=== PATIENT | male | born 1985 | race Caucasian/White ===

== ENCOUNTER 2021-05-07 06:29 | Outpatient (REF) | payer OTHER, SELFPAY ==
[2021-05-07 07:19] LABS: MANUAL DIFF FLAG NO
[2021-05-07 07:29] LABS: Basophils Absolute Auto 0.1 X10*3/uL (0.0-0.2); Basophils Percent Auto 1.1 % (0-2); Eosinophils Absolute Auto 0.3 X10*3/uL (0.0-0.4); Eosinophils Percent Auto 4.2 % (0-4); Hematocrit 44.2 % (42-52); Imm Gran Abs Auto 0.02 X10*3/uL (0.00-0.03); Imm Gran Pct Auto 0.3 % (0.0-0.4); Lymphocytes Absolute Auto 1.7 X10*3/uL (1.2-4.9); Lymphocytes Percent Auto 26.1 % (20-40); Mean Corpuscular HGB Conc 33.9 g/dl (31.0-36.0); Mean Corpuscular Hemoglobin 30.2 pg (27.0-33.0); Mean Corpuscular Volume 88.9 fL (80-98); Mean Platelet Volume 10.8 fL (9.4-12.4); Monocytes Absolute Auto 0.8 X10*3/uL (0.1-1.2); Monocytes Percent Auto 12.2 % (2-11); Neutrophils Absolute Auto 3.6 X10*3/uL (2.0-8.3); Neutrophils Percent Auto 56.1 % (45-73); Platelet Count 296 X10*3/uL (160-400); Red Blood Count 4.97 X10*6/uL (4.60-5.80); Red Cell Distribution Width 12.2 % (11.0-16.0); White Blood Count 6.4 X10*3/uL (4.8-10.8)
[2021-05-07 07:53] LABS: Alanine Aminotransferase 42 U/L (0-40); Albumin Level 4.6 g/dL (3.5-5.0); Alkaline Phosphatase 60 U/L (39-117); Anion Gap 13 (12-20); Aspartate Amino Transferase 34 U/L (5-37); Bilirubin Total 0.7 mg/dL (0.0-1.0); Blood Urea Nitrogen 13 mg/dL (9-16); Calcium 10.2 mg/dL (8.4-10.2); Carbon Dioxide 26 mmol/L (22-29); Chloride 101 mmol/L (96-108); Cholesterol 233 mg/dL; Estimated Glomerular Filt Rate > 60; Glucose Fasting 117 mg/dL (60-99); HDL Cholesterol 73 mg/dL; LDL Cholesterol Calculated 140 mg/dl; Potassium 4.4 mmol/L (3.3-5.1); Sodium 136 mmol/L (135-145); Total Protein 7.2 g/dL (6.5-8.0); Triglycerides 103 mg/dL
[2021-05-07 08:14] LABS: TSH reflex Free T4 1.82 uIU/mL (0.32-4.0)
[2021-05-07 08:39] LABS: Creatinine Urine 128.78 mg/dL; Microalbum/Creatinine Ratio Ur 6.9 ug/mg cr
== END 2021-05-07 06:30 | disposition home or self-care (01) ==
LOC: HO.LAB 06:29
PROVIDERS: PCP Physician Assistant; Visit Provider Physician Assistant
DX: I10 Essential (primary) hypertension (principal)
CPT/HCPCS: 36415; 80053; 80061; 82043; 84443; 85025

== ENCOUNTER → 2021-06-08 14:51 | Outpatient (REF) | payer OTHER, SELFPAY ==
--- NOTE | ~2021-06-08 | XR_ITS ---
EXAMINATION: XR LUMBOSACRAL SPINE CLINICAL INFORMATION: Low back pain COMPARISON: None TECHNIQUE: Three views of the lumbosacral spine. FINDINGS: Bone alignment is normal. No fracture or dislocation is seen. Disc spaces are normal. There is lower lumbar spine facet arthritis. XR/XR lumbar spine 2-3V IMPRESSION: Lower lumbar spine facet arthritis.
== END ==
LOC: HO.SL 14:51
PROVIDERS: PCP Physician Assistant; Visit Provider Physician Assistant
DX: M54.50 Low back pain, unspecified (principal); R06.81 Apnea, not elsewhere classified
CPT/HCPCS: 72100; 95806

== ENCOUNTER → 2021-06-23 15:25 | Outpatient (BNVA) | payer OTHER, SELFPAY | PROVIDERS: PCP Physician Assistant; Visit Provider Internal Medicine ==

== ENCOUNTER → 2021-10-06 10:56 | Outpatient (BNVA) | payer OTHER, SELFPAY | PROVIDERS: PCP Physician Assistant; Visit Provider Internal Medicine ==

== ENCOUNTER 2021-12-25 08:48 | Outpatient (REF) | payer OTHER, SELFPAY ==
[2021-12-25 09:57] LABS: Estimated Average Glucose 105 mg/dL; Hemoglobin A1c % 5.3 %
[2021-12-25 10:06] LABS: Alanine Aminotransferase 33 U/L (0-40); Albumin Level 4.7 g/dL (3.5-5.0); Alkaline Phosphatase 65 U/L (39-117); Anion Gap 12 (12-20); Aspartate Amino Transferase 23 U/L (5-37); Bilirubin Total 0.6 mg/dL (0.0-1.0); Blood Urea Nitrogen 13 mg/dL (9-16); Calcium 10.2 mg/dL (8.4-10.2); Carbon Dioxide 25 mmol/L (22-29); Chloride 102 mmol/L (96-108); Cholesterol 226 mg/dL; Estimated Glomerular Filt Rate > 60; Glucose Fasting 116 mg/dL (60-99); HDL Cholesterol 68 mg/dL; LDL Cholesterol Calculated 144 mg/dl; Potassium 4.4 mmol/L (3.3-5.1); Sodium 135 mmol/L (135-145); Total Protein 7.7 g/dL (6.5-8.0); Triglycerides 70 mg/dL
[2021-12-25 10:28] LABS: TSH reflex Free T4 1.24 uIU/mL (0.32-4.0)
[2021-12-25 11:01] LABS: Creatinine Urine 52.49 mg/dL; Microalbumin Urine < 5.0 mg/L
== END 2021-12-25 08:49 | disposition home or self-care (01) ==
LOC: HO.LAB 08:48
PROVIDERS: PCP Physician Assistant; Visit Provider Physician Assistant
DX: I10 Essential (primary) hypertension (principal); R73.09 Other abnormal glucose; E78.9 Disorder of lipoprotein metabolism, unspecified
CPT/HCPCS: 36415; 80053; 80061; 82043; 83036; 84443

== ENCOUNTER 2022-11-17 07:23 | Outpatient (REF) | payer OTHER, SELFPAY ==
[2022-11-17 08:33] LABS: Hematocrit 42.2 % (42.0-52.0); Hemoglobin 14.3 g/dl (14.0-18.0); Mean Corpuscular HGB Conc 33.9 g/dl (31.0-36.0); Mean Corpuscular Volume 88.7 fL (80.0-98.0); Mean Platelet Volume 10.6 fL (9.4-12.4); Platelet Count 263 X10*3/uL (160-400); Red Blood Count 4.76 X10*6/uL (4.60-5.80); Red Cell Distribution Width 12.2 % (11.0-16.0); White Blood Count 6.1 X10*3/uL (4.8-10.8)
[2022-11-17 09:08] LABS: Alanine Aminotransferase 31 U/L (0-40); Albumin Level 4.6 g/dL (3.5-5.0); Alkaline Phosphatase 59 U/L (39-117); Anion Gap 16 (12-20); Aspartate Amino Transferase 34 U/L (5-37); Blood Urea Nitrogen 13 mg/dL (9-16); Calcium 9.9 mg/dL (8.4-10.2); Carbon Dioxide 26 mmol/L (22-29); Chloride 99 mmol/L (96-108); Cholesterol 225 mg/dL; Estimated Glomerular Filt Rate > 60; Glucose Fasting 112 mg/dL (60-99); HDL Cholesterol 65 mg/dL; LDL Cholesterol Calculated 140 mg/dl; Potassium 4.5 mmol/L (3.3-5.1); Sodium 136 mmol/L (135-145); Triglycerides 104 mg/dL
[2022-11-17 09:26] LABS: TSH reflex Free T4 1.29 uIU/mL (0.32-4.0)
== END 2022-11-17 07:24 | disposition home or self-care (01) ==
LOC: HO.LAB 07:23
PROVIDERS: PCP Physician Assistant; Visit Provider Physician Assistant
DX: I10 Essential (primary) hypertension (principal)
CPT/HCPCS: 36415; 80053; 80061; 84443; 85027

== ENCOUNTER → 2022-12-01 14:52 | Outpatient (BNVA) | payer OTHER, SELFPAY | PROVIDERS: PCP Physician Assistant; Visit Provider Internal Medicine | DX: Z13.89 Encounter for screening for other disorder (principal) ==

== ENCOUNTER 2023-03-15 14:22 | Outpatient (AMB) | payer OTHER, SELFPAY ==
--- NOTE | 2023-03-15 14:38 | A.OFFVIS_ITS ---
Intake Intake Visit Reasons: Vasectomy Consult Intake Note: New Patient is present for vasectomy consult Antibiotic Allergy: Amoxicillin, Penicillins, Sulfa Blood Thinner: None [facility] Patient has no children Not expecting any Allergies amoxicillin Allergy (Unknown, Verified 03/15/23 14:39) Unknown Penicillins Allergy (Unknown, Verified 03/15/23 14:39) Unknown Sulfa (Sulfonamide Antibiotics) Allergy (Unknown, Verified 03/15/23 14:39) Unknown HPI HPI Comments History of Present Illness Details Blade is a very pleasant male. He is a patient of Dr. Mike. 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 He is currently He has fathered - 0 child, with a single partner. The youngest child is - none. His partner is aware and permissive for a vasectomy Current form of control is hormonal control. The vasectomy may be complicated due to a history of no complicating issues, inguinal hernia repair, orchidopexy, history of orchitis, orchiectomy. Patient education has been provided via AUA video, via printed information, risks of failure, recovery time, bruising and potential pain syndrome have been stressed Discussion today focused on the presence of vasectomy and the risks, benefits and alternatives that are available. Vasectomy as intended as a permanent form of control. Printed information and literature was provided to the patient. Overall there is a one in 2500 failure rate. This can occur at any time after vasectomy. Risks were discussed highlighting hematoma, spermatocele, epididymal congestion, development of sperm antibodies, and development of chronic pain estimated between 1-5%. The procedure was reviewed in detail. Anatomical diagrams of the male genitalia were used to explain the location of the vas deferens. The vas deferens will be transected, the proximal end will be cauterized, a metal clip would be applied to separate the 2 vas deferens ends. It was explained the procedure will be done in the office and takes approximately 10-15 minutes. Less common problems that arise with vasectomy include hematoma, bleeding, allergic reaction to anesthetic, epididymal infection, epididymal congestion, scrotal discomfort, spermatic leak, spermatic granuloma and the possibility of antisperm antibodies. He understands these risks and wishes to proceed. Consent was signed at the office today. He also understands that it takes 12 weeks for sperm to fully clear the system. He will need to provide a semen sample at 12 weeks and if this is not clear a 2nd sample at 16 weeks. Medical clearance to stop using protection will only be provided if he satisfies published criteria for sperm clearance. 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 Cognitive needs: No Hearing needs: No Vision needs: No Review of Systems Const Denies chills and Denies fever(s) Card Reports no additional complaints and Denies syncope Resp Denies cough GI Denies abdominal pain and Denies heartburn Reports as per HPI and Denies change in libido Neuro Denies syncope Psych Denies change in libido Endo Denies change in libido Physical Exam Const General: cooperative, healthy appearing, comfortable and no acute distress Orientation/consciousness: patient oriented x3 HEENT Face and sinus: Yes normal facial exam Mouth: moist mucous membranes Neck Neck: Yes normal visual inspection, Yes full ROM and Yes trachea midline Chest Chest palpation & inspection: normal inspection of the chest Resp Effort & Inspection: normal respiratory effort, able to speak in complete sentences and no respiratory distress GI Inspection: Yes normal to inspection Back/Spine/Pelvis Cervical Spine: normal cervical lordosis Thoracic/Lumbar Spine: thoracic and lumbar spine normal to inspection Skin General skin exam: no rashes or lesions noted Neuro General: patient oriented x3, gait normal, tone normal and moves all extremities Extrem General: Yes normal to inspection and Yes capillary refill normal Assessment & Plan Assessment & Plan (1) Anxiety about health: Code(s): F41.8 - Other specified anxiety disorders Plan Plan vasectomy Medications: New 2 acetaminophen-codeine 300-30 mg 1 tab PO Q8H 9 tabs 0RF 3 days F41.8 - Other specified anxiety disorders diazepam Take medication after arrival at office 2 mg PO BID PRN 2 tabs 0RF anxiety 1 day F41.8 - Other specified anxiety disorders Patient Instructions: Imaging studies, laboratory and physical exam results were discussed and reviewed in detail. No major barriers to patient understanding were identified. An opportunity to ask questions regarding the treatment plan was provided. All questions were answered. The patient expressed understanding and agreement with the above treatment plan. The patient is aware they should contact our office by phone for worsening of their current condition or the appearance of new urologic symptoms. Compliance is encouraged with any medications and followup testing that is ordered. It is a privilege to participate in the urologic care of your patient. If you have any questions or concerns regarding treatment for the above conditions, or other urologic issues, please do not hesitate to contact me. The office telephone contact is [phone]. This note is constructed using voice recognition software. While every effort has been made to ensure accuracy computer engineer errors may have been included. Yours sincerely, Dr Noel Azar MD, [facility] - Urology Providers of Expert, Compassionate Care for the Genitourinary System Coding Level of Care Code New Pt Level 4 (58641) Diagnoses Anxiety about health F41.8
== END 2023-03-15 15:01 | disposition home or self-care (01) ==
PROVIDERS: Visit Provider Urology
DX: Z30.09 Encounter for other general counseling and advice on contraception (principal); F41.8 Other specified anxiety disorders
CPT/HCPCS: 99204

== ENCOUNTER → 2023-03-15 14:22 | Outpatient (BNVA) | payer OTHER, SELFPAY | PROVIDERS: Visit Provider Urology ==

== ENCOUNTER 2023-06-10 14:56 | Outpatient (AMB) | payer OTHER, SELFPAY ==
--- NOTE | 2023-06-10 15:11 | A.OFFVIS_ITS ---
Intake Intake Visit Reasons: vasectomy Intake Note: Patient is present for Vasectomy Allergies amoxicillin Allergy (Unknown, Verified 03/15/23 14:39) Unknown Penicillins Allergy (Unknown, Verified 03/15/23 14:39) Unknown Sulfa (Sulfonamide Antibiotics) Allergy (Unknown, Verified 03/15/23 14:39) Unknown [facility] Medical History Morbid obesity NICHOLE (obstructive sleep apnea) Surgical History History of placement of ear tubes Family History Father Diabetes Mother Hypertension Brother Diabetes Social History Housing: House Alcohol intake: current Alcohol intake frequency: a few times a month Alcohol type: beer Patient Tobacco Use Status: Never used Tobacco Tobacco use type: Cigarette e-Cigarette/Vaping Use: Never Used Second Hand Smoke Exposure: No service: No Current occupational status: employed 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
--- NOTE | 2023-06-10 15:44 | A.OFFVIS_ITS ---
Intake Intake Visit Reasons: vasectomy Allergies amoxicillin Allergy (Unknown, Verified 07/18/23 15:17) Unknown Penicillins Allergy (Unknown, Verified 07/18/23 15:17) Unknown Sulfa (Sulfonamide Antibiotics) Allergy (Unknown, Verified 07/18/23 15:17) Unknown HPI HPI Comments History of Present Illness Details Blade is a very pleasant male. He is a patient of Dr. Mike. 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 He is currently He has fathered - 0 child, with a single partner. The youngest child is - none. His partner is aware and permissive for a vasectomy Current form of control is hormonal control. The vasectomy may be complicated due to a history of no complicating issues, inguinal hernia repair, orchidopexy, history of orchitis, orchiectomy. Patient education has been provided via AUA video, via printed information, risks of failure, recovery time, bruising and potential pain syndrome have been stressed [facility] Medical History NICHOLE (obstructive sleep apnea) Morbid obesity Surgical History History of placement of ear tubes Family History Father Diabetes Mother Hypertension Brother Diabetes Social History Housing: House Alcohol intake: current Alcohol intake frequency: a few times a month Alcohol type: beer Patient Tobacco Use Status: Never used Tobacco Tobacco use type: Cigarette e-Cigarette/Vaping Use: Never Used Second Hand Smoke Exposure: No service: No Current occupational status: employed 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 Cognitive needs: No Hearing needs: No Vision needs: No Review of Systems Const Denies chills and Denies fever(s) Card Reports no additional complaints and Denies syncope Resp Denies cough GI Denies abdominal pain and Denies heartburn Reports as per HPI and Denies change in libido Neuro Denies syncope Psych Denies change in libido Endo Denies change in libido Physical Exam Const General: cooperative, healthy appearing, comfortable and no acute distress Orientation/consciousness: patient oriented x3 HEENT Face and sinus: Yes normal facial exam Mouth: moist mucous membranes Neck Neck: Yes normal visual inspection, Yes full ROM and Yes trachea midline Chest Chest palpation & inspection: normal inspection of the chest Resp Effort & Inspection: normal respiratory effort, able to speak in complete sentences and no respiratory distress GI Inspection: Yes normal to inspection Back/Spine/Pelvis Cervical Spine: normal cervical lordosis Thoracic/Lumbar Spine: thoracic and lumbar spine normal to inspection Skin General skin exam: no rashes or lesions noted Neuro General: patient oriented x3, gait normal, tone normal and moves all extremities Extrem General: Yes normal to inspection and Yes capillary refill normal Office Procedures Vasectomy Details: Preoperative diagnosis: Anxiety regarding Postoperative diagnosis: Anxiety regarding unplanned Procedure: Bilateral vasectomy Informed consent had been completed. Preoperative and postoperative instructions were provided to the patient. The patient has transportation to home identified at the completion of the procedure. Anti-anxiolytic prescription medication had been taken after consent verification and all questions answered. Tylenol with Codeine pain medication was also provided. The penis was elevated using a rubber band that was attached to the patient's shirt. Both vasa were palpated through the skin using a 3 finger technique and the penoscrotal junction was prepped with Betadine. After Betadine application the left vas was elevated using a 3 finger grasping technique. 1% lidocaine was used to create a subdermal bubble. Approximately 2 minutes were allowed to for local anesthetic uptake. Further anesthetic was then advanced using the 25-gauge needle along the vasa in a proximal fashion. Using the sharp spreading instrument the scrotum was spread longitudinally in line with the vasa. The vasa was elevated from the scrotum using a ring clamp. Care was taken to elevate the superior portion of the vas. Using the sharp spreading instrument the vasal sheath was removed from the covering of this segment of the vas. A fresh knife blade was used to partially divide the vasal sheath and to strip the vasal sheath from the vasa. The vasa was grasped with an Addson forcep and elevated from the incision. The ring clamp was placed so it grasped the elevated vas. The vasal sheath was dissected from the vaas in a proximal and distal fashion. This allowed the blood vessels of the vasa to retract from the vasa. Using the battery-powered cautery a partial divi judie was made in the proximal vas. The battery-powered cautery was used to cauterize the proximal end of the vas. This was then cut and allowed to retract into the vasal sheath. A clip was placed on the vasal sheath to create a fascial interposition. The distal portion of the vas was then cut in order to obtain a segment of vasa. The vasa were allowed to retract back into the scrotum. A small snap was then used to approximate the skin edges. A similar procedure was repeated on the right side. He tolerated the procedure well. Triple antibiotic was applied. A gauze was applied. An ice pack was applied to assist with minimizing swelling. Postoperative instructions were confirmed. He understands the need to continue to use control methods. A semen sample should be brought for inspection under the microscope in 10-12 weeks. CPT 65105 Vasectomy performed by: Noel Azar Informed consent given: Yes Informed consent signed: Yes Time out checklist: patient, procedure, site marked/identified, positioning of patient, supplies available, allergies confirmed and team agrees on procedure Anesthetic used: other Specimens: vas segments not sent to pathology 19066 - Vasectomy Assessment & Plan Assessment & Plan (1) Anxiety about health: Code(s): F41.8 - Other specified anxiety disorders Plan Three month follow-up Patient Instructions: Imaging studies, laboratory and physical exam results were discussed and reviewed in detail. No major barriers to patient understanding were identified. An opportunity to ask questions regarding the treatment plan was provided. All questions were answered. The patient expressed understanding and agreement with the above treatment plan. The patient is aware they should contact our office by phone for worsening of their current condition or the appearance of new urologic symptoms. Compliance is encouraged with any medications and followup testing that is ordered. It is a privilege to participate in the urologic care of your patient. If you have any questions or concerns regarding treatment for the above conditions, or other urologic issues, please do not hesitate to contact me. The office telephone contact is [phone]. This note is constructed using voice recognition software. While every effort has been made to ensure accuracy auto fleet maintenance manager errors may have been included. Yours sincerely, Dr Noel Azar MD, [facility] - Urology Providers of Expert, Compassionate Care for the Genitourinary System Coding Level of Care Code Procedure Only Diagnoses Anxiety about health F41.8 CPT Codes Office Procedure - CPT: 37382 - Vasectomy ([id number])
== END 2023-06-10 15:45 | disposition home or self-care (01) ==
PROVIDERS: PCP Physician Assistant; Visit Provider Urology
DX: Z30.2 Encounter for sterilization (principal); F41.8 Other specified anxiety disorders
CPT/HCPCS: 55250

== ENCOUNTER → 2023-06-10 14:56 | Outpatient (BNVA) | payer OTHER, SELFPAY | PROVIDERS: PCP Physician Assistant; Visit Provider Urology | DX: Z30.2 Encounter for sterilization (principal); F41.8 Other specified anxiety disorders | CPT/HCPCS: 55250 ==

== ENCOUNTER 2023-07-13 07:21 | Outpatient (REF) | payer OTHER, SELFPAY ==
[2023-07-13 08:06] LABS: Hematocrit 42.5 % (42.0-52.0); Hemoglobin 14.5 g/dl (14.0-18.0); Mean Corpuscular HGB Conc 34.1 g/dl (31.0-36.0); Mean Corpuscular Hemoglobin 30.3 pg (27.0-33.0); Mean Corpuscular Volume 88.9 fL (80.0-98.0); Mean Platelet Volume 10.4 fL (9.4-12.4); Platelet Count 239 X10*3/uL (160-400); Red Blood Count 4.78 X10*6/uL (4.60-5.80); Red Cell Distribution Width 12.1 % (11.0-16.0); White Blood Count 6.1 X10*3/uL (4.8-10.8)
[2023-07-13 08:20] LABS: Estimated Average Glucose 105 mg/dL; Hemoglobin A1c % 5.3 % (<6.0)
[2023-07-13 08:30] LABS: Alanine Aminotransferase 41 U/L (0-40); Albumin Level 4.5 g/dL (3.5-5.0); Alkaline Phosphatase 58 U/L (39-117); Anion Gap 11 (12-20); Aspartate Amino Transferase 36 U/L (5-37); Bilirubin Total 0.7 mg/dL (0.0-1.0); Blood Urea Nitrogen 13 mg/dL (9-16); Calcium 10.2 mg/dL (8.4-10.2); Carbon Dioxide 28 mmol/L (22-29); Chloride 99 mmol/L (96-108); Cholesterol 253 mg/dL (<200); Estimated Glomerular Filt Rate > 60; Glucose Fasting 120 mg/dL (60-99); HDL Cholesterol 77 mg/dL (>40); LDL Cholesterol Calculated 151 mg/dL (<100); Potassium 4.1 mmol/L (3.3-5.1); Sodium 134 mmol/L (135-145); Total Protein 7.6 g/dL (6.5-8.0); Triglycerides 126 mg/dL (<150)
[2023-07-13 08:44] LABS: TSH reflex Free T4 1.39 uIU/mL (0.32-4.0)
[2023-07-13 09:22] LABS: Creatinine Urine 87.98 mg/dL; Microalbumin Urine < 5.0 mg/L
== END 2023-07-13 07:22 | disposition home or self-care (01) ==
LOC: HO.LAB 07:21
PROVIDERS: PCP Physician Assistant; Visit Provider Physician Assistant
DX: I10 Essential (primary) hypertension (principal); R73.09 Other abnormal glucose; E78.9 Disorder of lipoprotein metabolism, unspecified; E66.01 Morbid (severe) obesity due to excess calories; Z68.41 Body mass index [BMI] 40.0-44.9, adult
CPT/HCPCS: 36415; 80053; 80061; 82043; 82570; 83036; 84443; 85027

== ENCOUNTER 2023-07-14 15:54 | Outpatient (AMB) | payer OTHER, SELFPAY ==
--- NOTE | 2023-07-14 16:04 | A.OFFVIS_ITS ---
Intake Vital Signs 07/14/23 16:05 Height 5 ft 11 in Weight 264 lb 8.875 oz BMI 36.9 BP 110/72 Blood Pressure Location Lt brachial Position Sitting Pulse 78 Pulse Source Pulse Oximeter Pulse Oximetry (%) 97 Oxygen Delivery Method Room Air Intake Visit Reasons: Obstructive sleep apnea Intake Note: pt is here for follow up and states he is doing well with cpap. Junior Administrative Assistant Required: No Allergies amoxicillin Allergy (Unknown, Verified 07/14/23 16:14) Unknown Penicillins Allergy (Unknown, Verified 07/14/23 16:14) Unknown Sulfa (Sulfonamide Antibiotics) Allergy (Unknown, Verified 07/14/23 16:14) Unknown Medication List - Last Reconciled 07/14/23 by Bradford eBavers MD cholecalciferol (vitamin D3) 25 mcg PO DAILY 90 days losartan-hydrochlorothiazide 50-12.5 mg 1 tab PO DAILY Do you need a note to return to daycare/school/sports/work: No HPI Obstructive sleep apnea HPI Details This 38 years old gentleman has been doing very well with his CPAP usage. He is very comfortable with Air Fit- 20, fullface mask. Uses CPAP every night for 8 hours. He tends to wake up after about 6 hours sleep, but he still keeps the mask on for another 2 hours. He is very energetic and denies any daytime sleepiness. He has done a great job, and lost 21 lb of weight in the last 6 months, by common sense dieting and exercising. 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 Cognitive needs: No Hearing needs: No Vision needs: No Review of Systems Const All systems reviewed & are unremarkable except as noted in HPI and below Eyes Reports no additional complaints ENT Reports no additional complaints Card Denies chest pain, Denies irregular heart rhythm and Denies leg edema Resp Reports no additional complaints GI Reports no additional complaints Reports no additional complaints Musc Reports no additional complaints Neuro Reports no additional complaints Psych Reports no additional complaints Physical Exam Vital Signs: Last Vital Signs Pulse 78 07/14/23 16:05 BP 110/72 07/14/23 16:05 Pulse Ox 97 07/14/23 16:05 Oxygen Delivery Method Room Air 07/14/23 16:05 BMI result Body Mass Index 36.9 Const General: healthy appearing (Except for gross obesity), comfortable, no acute distress, alert and awake Orientation/consciousness: patient oriented x3 HEENT Head: Yes normal to inspection General nose exam: No nasal polyps present and No nasal discharge present Face and sinus: Yes sinuses nontender Mouth: oropharynx abnormals (Narrow and crowded oropharynx, Mallampati class 4) Throat: Yes posterior oropharynx normal Eyes General: appearance normal, both eyes and all related structures Neck Neck: Yes normal visual inspection, Yes no lymphadenopathy, Yes trachea midline, Yes no JVD and Yes other (Neck circumference 17 in) Thyroid: Thyroid normal Chest Chest palpation & inspection: normal inspection of the chest, normal palpation of entire chest wall and no tenderness Resp Effort & Inspection: normal respiratory effort Auscultation: clear to auscultation bilaterally, no crackles and no wheezes Cardio Palpation: normal PMI Rate: regular rate Rhythm: regular rhythm Heart sounds: no gallops and no murmurs Peripheral pulses: Peripheral pulses 2+ throughout GI Palpation (GI): Soft to palpation, nontender, No hepatosplenomegaly present, no masses and Other GI palpation findings present (Abdomen is obese and slightly protuberant) Auscultation: normal bowel sounds Back/Spine/Pelvis Thoracic/Lumbar Spine: thoracic and lumbar spine normal to inspection Skin General skin exam: no rashes or lesions noted Neuro General: patient oriented x3 and no focal motor deficits Cranial nerves: Yes CN's II-XII intact bilaterally Extrem General: Yes normal to inspection, Yes no clubbing, cyanosis or edema and Yes no calf tenderness Psych Speech and movement: Normal speech and movement present Results Reviewed Results Reviewed: Compliance report for the last 30 nights. Used nights,, 100% average use per night 8 hours 1 minute. Pressure used mostly 12-14 cm. . No significant air leak Residual AHI 1.2 Assessment & Plan Assessment & Plan (1) Morbid obesity: Comment: Patient educated about his gross obesity. He has lost another 21 lb of weight. Code(s): E66.01 - Morbid (severe) obesity due to excess calories Plan: Commended for losing weight. He is motivated to keep on losing more weight. (2) NICHOLE (obstructive sleep apnea): Comment: DIAGNOSIS OF NICHOLE . ESTABLISHED BY HOME SLEEP STUDY, He is using CPAP very regularly and benefiting, with much improved sleep quality. Does not have any significant issues with the CPAP device at this time. He is very comfortable with current AirFit-20 mask COMPLIANCE RESULTS ARE EXCELLENT 100% and he is commended for that. Code(s): G47.33 - Obstructive sleep apnea (adult) (pediatric) Plan: Commended for his excellent compliance, And advised to continue using the CPAP regularly every night. Coding Level of Care Code Est Pt Level 3 (30582) Diagnoses Morbid obesity E66.01 NICHOLE (obstructive sleep apnea) G47.33
[2023-07-14 16:05] VITALS: BP 110/72; PULSE 78; O2SAT 97; BMI 36.9
== END 2023-07-14 16:19 | disposition home or self-care (01) ==
PROVIDERS: PCP Physician Assistant; Visit Provider Internal Medicine
DX: E66.01 Morbid (severe) obesity due to excess calories (principal); G47.33 Obstructive sleep apnea (adult) (pediatric)
CPT/HCPCS: 99213

== ENCOUNTER → 2023-07-14 15:54 | Outpatient (BNVA) | payer OTHER, SELFPAY | PROVIDERS: PCP Physician Assistant; Visit Provider Internal Medicine ==

== ENCOUNTER 2023-07-18 14:55 | Outpatient (AMB) | payer OTHER, SELFPAY ==
[2023-07-18 15:09] VITALS: BP 132/92; PULSE 79; O2SAT 99; BMI 39.7
--- NOTE | 2023-07-18 15:09 | A.OFFPC_ITS ---
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 Accompanied by: Self / Same As Patient Allergies amoxicillin Allergy (Unknown, Verified 07/18/23 15:17) Unknown Penicillins Allergy (Unknown, Verified 07/18/23 15:17) Unknown Sulfa (Sulfonamide Antibiotics) Allergy (Unknown, Verified 07/18/23 15:17) Unknown Medication List - Last Reconciled 07/18/23 by Vidal Mike PA-C cholecalciferol (vitamin D3) 25 mcg PO DAILY 90 days losartan-hydrochlorothiazide 50-12.5 mg 1 tab PO DAILY Tobacco use date assessed: 11/23/22 Dental Screening Dental Screen Date: 07/18/23 Did you have a dental visit in the last 12 months?: Yes Did you have a dental problem in the last 6 months where you did not have access to dental care?: No Was dental information given to patient?: Patient has dentist HPI Follow-up hypertension HPI Details Patient is a 38 year male here today for follow-up visit. Patient has a past medical history significant obesity, hypertension, obstructive sleep apnea and impaired glucose metabolism. .. HTN: does check blood pressure at home a reports 130 is 140 systolic.? He denies any headaches, chest discomforts or palpitations.? Blood pressure today in office acceptable .. Hyperlipidemia: Noted most recent lipid panel showing elevated total cholesterol and LDL. He reports he has been more physically active in has a fairly good diet. PLAN: Will continue to work on lifestyle modification to reduce his high cholesterol. .. Impaired glucose metabolism: Fasting blood sugar still remains slightly elevated, A1c appropriate. He continues to work on weight reduction and low- carbohydrate diet. .. Obesity: Has lost a few lb since last office visit, BMI remains still well above 30. Will continue to work on lifestyle modifications to reduce his weight. .. Obstructive sleep apnea: Continues with nightly use CPAP machine and is followed by management and budget analyst. Ports better sleep with CPAP machine. 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 Ruy Macdonald, Mercedes Hanna, Clifton Saunders and colleagues, with an educational isabel from [employer]. Review of Systems Const Denies headache(s) Eyes Denies loss of vision ENT Denies vertigo, Denies dizziness, Denies headache(s) and Denies sore throat Card Denies chest pain, Denies leg edema and Denies lightheadedness Resp Denies cough, Denies hemoptysis and Denies wheezing GI Denies abdominal pain, Denies melena, Denies constipation, Denies diarrhea and Denies vomiting Denies dysuria, Denies urinary frequency and Denies urinary urgency Musc Denies arthralgias, Denies joint swelling, Denies numbness and Denies tingling Neuro Denies Abnormal speech present, Denies behavioral changes, Denies vertigo, Denies dizziness, Denies headache(s), Denies loss of vision, Denies memory loss, Denies numbness and Denies tingling Psych Denies anxiety, Denies behavioral changes, Denies depression, Denies memory loss and Denies panic attacks Shashi/Lymph Denies easy bleeding and Denies easy bruising Aller/Immun Denies wheezing Physical exam (Primary Care) Vital Signs: Last Vital Signs Pulse 79 07/18/23 15:09 BP 132/92 H 07/18/23 15:09 Pulse Ox 99 07/18/23 15:09 Oxygen Delivery Method Room Air 07/18/23 15:09 BMI result Body Mass Index 39.7 BMI Assessment/Plan discussion: High Tobacco/Smoking Status: Tobacco use Status Tobacco use date assessed 11/23/22 07/18/23 15:09 Patient Tobacco Use Status Never used Tobacco 07/18/23 15:09 Tobacco use type Cigarette 07/18/23 15:09 e-Cigarette/Vaping Use Never Used 07/18/23 15:09 Thrive Assessment: Date of Thrive Assessment Date Thrive assessed 11/23/22 07/18/23 15:09 Const Other: Obese General: healthy appearing, no acute distress, alert and awake Nutritional Appearance: well nourished Orientation/consciousness: oriented to person, oriented to place and oriented to time HENMT Ears: TM's normal bilaterally General nose exam: Normal nasal mucous membranes and turbinates present Eyes Conjunctivae: conjunctivae normal Sclerae: sclerae normal Pupils: Equal, round and reactive pupils present Neck Neck: Yes no lymphadenopathy and Yes no JVD Thyroid: Thyroid normal Carotids: no bruits Resp Effort & Inspection: normal respiratory effort and not tachypneic Auscultation: no crackles, no rales, no rhonchi and no wheezes Cardio Rate: regular rate Rhythm: regular rhythm Heart sounds: no murmurs and normal S1 and S2 GI Palpation (GI): Soft to palpation, nontender, no hepatomegaly and no splenomegaly Auscultation: normal bowel sounds Skin General skin exam: no rashes or lesions noted and dry skin Neuro General: oriented to person, oriented to place and oriented to time Cranial nerves: Yes Equal, round and reactive pupils present Speech: No Abnormal speech present Gait exam (Neuro): Normal gait present Motor exam (neuro): no tremor noted Extrem Right upper extremity: full ROM Left upper extremity: full ROM Right lower extremity: full ROM; no edema Left lower extremity: full ROM; no edema Psych Mental Status: mental status grossly normal Speech and movement: Normal speech and movement present Affect: normal affect Attitude: cooperative Thought process: Normal thought process present Assessment and Plan Assessment & Plan (1) HTN (hypertension): Code(s): I10 - Essential (primary) hypertension Qualifiers: Hypertension type: essential hypertension Qualified Code(s): I10 - Essential (primary) hypertension Plan: Patient's blood pressure acceptable today in office. Will continue his current antihypertensive medication with goal blood pressure to be below 140/90 (2) Impaired glucose metabolism: Code(s): R73.09 - Other abnormal glucose Plan: Has a family history of diabetes Most recent fasting blood sugars slightly elevated. A1c appropriate.. Will continue to follow fasting blood sugars and A1c. Will continue on lifestyle modifications to reduce his carbohydrates and weight. (3) Borderline high cholesterol: Code(s): E78.9 - Disorder of lipoprotein metabolism, unspecified Plan: Patient continues to have borderline high total cholesterol. Again will continue working on lifestyle modifications to reduce his high cholesterol foods and weight. LDL to be below 160 (4) Obese: Code(s): E66.9 - Obesity, unspecified Qualifiers: Body mass index: BMI 40.0-44.9 Obesity classification: adult class 3 (BMI >= 40) Obesity type: due to excess calories Serious obesity comorbidity presence: with serious comorbidity Qualified Code(s): E66.01 - Morbid (severe) obesity due to excess calories; Z68.41 - Body mass index [BMI]40.0-44.9, adult Plan: Patient does understand his BMI is well over 30 and will work on being more physically active in adapting to better eating habits to reduce his weight. Orders: Orders Testosterone, Free/Total 07/18/23 E66.01 - Morbid (severe) obesity due to excess calories, Z68.41 - Body mass index [BMI] 40.0-44.9, adult Comprehensive [place]. Panel Fast 07/18/23 I10 - Essential (primary) hypertension Microalbumin, Random (w Creat) 07/18/23 I10 - Essential (primary) hypertension Lipid Panel 07/18/23 E78.9 - Disorder of lipoprotein metabolism, unspecified Hemoglobin A1c 07/18/23 R73.09 - Other abnormal glucose Coding Level of Care Code Est Pt Level 4 (31069) Diagnoses Essential hypertension I10 Hypertension type: essential hypertension Impaired glucose metabolism R73.09 Borderline high cholesterol E78.9 Class 3 severe obesity due to excess calories with serious comorbidity and body mass index (BMI) of 40.0 to 44.9 in adult E66.01; Z68.41 Body mass index: BMI 40.0-44.9 Obesity classification: adult class 3 (BMI >= 40) Obesity type: due to excess calories Serious obesity comorbidity presence: with serious comorbidity
== END 2023-07-18 15:34 | disposition home or self-care (01) ==
PROVIDERS: PCP Physician Assistant; Visit Provider Physician Assistant
DX: I10 Essential (primary) hypertension (principal); R73.09 Other abnormal glucose; E66.01 Morbid (severe) obesity due to excess calories; Z68.41 Body mass index [BMI] 40.0-44.9, adult; E78.9 Disorder of lipoprotein metabolism, unspecified
CPT/HCPCS: 99214

== ENCOUNTER 2023-09-13 15:30 | Outpatient (AMB) | payer OTHER, SELFPAY ==
--- NOTE | 2023-09-13 15:41 | A.OFFVIS_ITS ---
Intake Intake Visit Reasons: 12w seman analysis Intake Note: Patient presents today for a follow-up on 12 Semen Analysis : Meds- None Allergies to Antibiotic- No Known Allergies Blood Thinner- None Contact Center Director Required: No Accompanied by: Self / Same As Patient Allergies amoxicillin Allergy (Unknown, Verified 07/18/23 15:17) Unknown Penicillins Allergy (Unknown, Verified 07/18/23 15:17) Unknown Sulfa (Sulfonamide Antibiotics) Allergy (Unknown, Verified 07/18/23 15:17) Unknown HPI HPI Comments History of Present Illness Details Blade is a very pleasant male. He is a patient of Dr. Mike. 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 He is currently He has fathered - 0 child, with a single partner. The youngest child is - none. His partner is aware and permissive for a vasectomy Current form of control is hormonal control. The vasectomy may be complicated due to a history of no complicating issues, inguinal hernia repair, orchidopexy, history of orchitis, orchiectomy. Patient education has been provided via [employer] video, via printed information, risks of failure, recovery time, bruising and potential pain syndrome have been stressed [facility] Medical History NICHOLE (obstructive sleep apnea) Morbid obesity Surgical History History of placement of ear tubes Family History Father Diabetes Mother Hypertension Brother Diabetes Social History Housing: House Alcohol intake: current Alcohol intake frequency: a few times a month Alcohol type: beer Patient Tobacco Use Status: Never used Tobacco Tobacco use type: Cigarette e-Cigarette/Vaping Use: Never Used Second Hand Smoke Exposure: No service: No Current occupational status: employed 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 Cognitive needs: No Hearing needs: No Vision needs: No Review of Systems Const Denies chills and Denies fever(s) Card Reports no additional complaints and Denies syncope Resp Denies cough GI Denies abdominal pain and Denies heartburn Reports as per HPI and Denies change in libido Neuro Denies syncope Psych Denies change in libido Endo Denies change in libido Physical Exam Const General: cooperative, healthy appearing, comfortable and no acute distress Orientation/consciousness: patient oriented x3 HEENT Face and sinus: Yes normal facial exam Mouth: moist mucous membranes Neck Neck: Yes normal visual inspection, Yes full ROM and Yes trachea midline Chest Chest palpation & inspection: normal inspection of the chest Resp Effort & Inspection: normal respiratory effort, able to speak in complete sentences and no respiratory distress GI Inspection: Yes normal to inspection Back/Spine/Pelvis Cervical Spine: normal cervical lordosis Thoracic/Lumbar Spine: thoracic and lumbar spine normal to inspection Skin General skin exam: no rashes or lesions noted Neuro General: patient oriented x3, gait normal, tone normal and moves all extremities Extrem General: Yes normal to inspection and Yes capillary refill normal Assessment & Plan Assessment & Plan (1) Anxiety about health: Code(s): F41.8 - Other specified anxiety disorders Plan P.r.n. Patient Instructions: Imaging studies, laboratory and physical exam results were discussed and reviewed in detail. No major barriers to patient understanding were identified. An opportunity to ask questions regarding the treatment plan was provided. All questions were answered. The patient expressed understanding and agreement with the above treatment plan. The patient is aware they should contact our office by phone for worsening of their current condition or the appearance of new urologic symptoms. Compliance is encouraged with any medications and followup testing that is ordered. It is a privilege to participate in the urologic care of your patient. If you have any questions or concerns regarding treatment for the above conditions, or other urologic issues, please do not hesitate to contact me. The office telephone contact is [phone]. This note is constructed using voice recognition software. While every effort has been made to ensure accuracy publicity expert errors may have been included. Yours sincerely, Dr Noel Azar MD, [facility] - Urology Providers of Expert, Compassionate Care for the Genitourinary System Coding Level of Care Code Est Pt Level 3 (66844) Diagnoses Anxiety about health F41.8
== END 2023-09-13 15:56 | disposition home or self-care (01) ==
PROVIDERS: PCP Physician Assistant; Visit Provider Urology
DX: F41.8 Other specified anxiety disorders (principal)
CPT/HCPCS: 99213

== ENCOUNTER → 2023-09-13 15:30 | Outpatient (BNVA) | payer OTHER, SELFPAY | PROVIDERS: PCP Physician Assistant; Visit Provider Urology ==

== ENCOUNTER 2023-12-30 07:21 | Outpatient (REF) | payer OTHER, SELFPAY ==
[2023-12-30 08:24] LABS: Estimated Average Glucose 108 mg/dL; Hemoglobin A1c % 5.4 % (<6.0)
[2023-12-30 08:36] LABS: Creatinine Urine 89.91 mg/dL; Microalbumin Urine < 5.0 mg/L
[2023-12-30 08:37] LABS: Alanine Aminotransferase 26 U/L (0-40); Albumin Level 4.4 g/dL (3.5-5.0); Alkaline Phosphatase 56 U/L (39-117); Anion Gap 14 (12-20); Aspartate Amino Transferase 23 U/L (5-37); Bilirubin Total 0.6 mg/dL (0.0-1.0); Blood Urea Nitrogen 15 mg/dL (9-16); Calcium 9.6 mg/dL (8.4-10.2); Carbon Dioxide 25 mmol/L (22-29); Chloride 102 mmol/L (96-108); Cholesterol 213 mg/dL (<200); Estimated Glomerular Filt Rate > 60; Glucose Fasting 115 mg/dL (60-99); HDL Cholesterol 68 mg/dL (>40); LDL Cholesterol Calculated 125 mg/dL (<100); Potassium 3.8 mmol/L (3.3-5.1); Sodium 137 mmol/L (135-145); Total Protein 7.3 g/dL (6.5-8.0); Triglycerides 102 mg/dL (<150)
[2024-01-04 21:13] LABS: Testosterone, Free 65.6 pg/mL (35.0-155.0); Testosterone, Total 317 ng/dL (250-1100)
== END 2023-12-30 07:22 | disposition home or self-care (01) ==
LOC: HO.LAB 07:21
PROVIDERS: PCP Physician Assistant; Visit Provider Physician Assistant
DX: I10 Essential (primary) hypertension (principal); E78.9 Disorder of lipoprotein metabolism, unspecified; R73.09 Other abnormal glucose; E66.01 Morbid (severe) obesity due to excess calories; Z68.41 Body mass index [BMI] 40.0-44.9, adult
CPT/HCPCS: 36415; 80053; 80061; 82043; 82570; 83036; 84402; 84403

== ENCOUNTER 2024-01-10 15:12 | Outpatient (AMB) | payer OTHER, SELFPAY ==
[2024-01-10 15:18] VITALS: BP 120/62; PULSE 75; O2SAT 97; BMI 39.7
--- NOTE | 2024-01-10 15:18 | A.OFFVIS_ITS ---
Vital Signs 01/10/24 15:18 Height 5 ft 11 in Weight 284 lb 6.341 oz BMI 39.7 BP 120/62 Blood Pressure Location Lt brachial Position Sitting Pulse 75 Pulse Source Pulse Oximeter Pulse Oximetry (%) 97 Oxygen Delivery Method Room Air Intake Visit Reasons: jaison Intake Note: pt is here for follow of JAISON and he feels good,doing well with cpap Disk Sharpener Required: No Allergies amoxicillin Allergy (Unknown, Verified 01/10/24 15:38) Unknown Penicillins Allergy (Unknown, Verified 01/10/24 15:38) Unknown Sulfa (Sulfonamide Antibiotics) Allergy (Unknown, Verified 01/10/24 15:38) Unknown Medication List - Last Reconciled 01/10/24 by Bradford Beavers MD cholecalciferol (vitamin D3) 25 mcg PO DAILY 90 days losartan-hydrochlorothiazide 50-12.5 mg 1 tab PO DAILY Do you need a note to return to daycare/school/sports/work: No HPI HPI jaison: Details: 38 years old gentleman who is grossly obese, and diagnosis of obstructive sleep apnea, comes for his routine. Follow-up after 6 months He uses CPAP very regularly and benefits from its use. In fact he is not able to sleep without using the CPAP. He denies any issues with the mask( fullface) or with the CPAP device. His weight goes up and down by a few lb but overall he has kept his weight at the same level. He is going to try to lose it during the summer. 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 Cognitive needs: No Hearing needs: No Vision needs: No Review of Systems Const All systems reviewed & are unremarkable except as noted in HPI and below Eyes Reports no additional complaints ENT Reports no additional complaints Card Denies chest pain, Denies irregular heart rhythm and Denies leg edema Resp Reports no additional complaints GI Reports no additional complaints Reports no additional complaints Musc Reports no additional complaints Neuro Reports no additional complaints Psych Reports no additional complaints Physical Exam Vital Signs: Last Vital Signs Pulse 75 01/10/24 15:18 BP 120/62 01/10/24 15:18 Pulse Ox 97 01/10/24 15:18 Oxygen Delivery Method Room Air 01/10/24 15:18 BMI result Body Mass Index 39.7 Const General: healthy appearing (Except for gross obesity), comfortable, no acute distress, alert and awake Orientation/consciousness: patient oriented x3 HEENT Head: Yes normal to inspection General nose exam: No nasal polyps present and No nasal discharge present Face and sinus: Yes sinuses nontender Mouth: oropharynx abnormals (Narrow and crowded oropharynx, Mallampati class 4) Throat: Yes posterior oropharynx normal Eyes General: appearance normal, both eyes and all related structures Neck Neck: Yes normal visual inspection, Yes no lymphadenopathy, Yes trachea midline, Yes no JVD and Yes other (Neck circumference 17 in) Thyroid: Thyroid normal Chest Chest palpation & inspection: normal inspection of the chest, normal palpation of entire chest wall and no tenderness Resp Effort & Inspection: normal respiratory effort Auscultation: clear to auscultation bilaterally, no crackles and no wheezes Cardio Palpation: normal PMI Rate: regular rate Rhythm: regular rhythm Heart sounds: no gallops and no murmurs Peripheral pulses: Peripheral pulses 2+ throughout GI Palpation (GI): Soft to palpation, nontender, No hepatosplenomegaly present, no masses and Other GI palpation findings present (Abdomen is obese and slightly protuberant) Auscultation: normal bowel sounds Back/Spine/Pelvis Thoracic/Lumbar Spine: thoracic and lumbar spine normal to inspection Skin General skin exam: no rashes or lesions noted Neuro General: patient oriented x3 and no focal motor deficits Cranial nerves: Yes CN's II-XII intact bilaterally Extrem General: Yes normal to inspection, Yes no clubbing, cyanosis or edema and Yes no calf tenderness Psych Speech and movement: Normal speech and movement present Results Reviewed Results Reviewed: Compliance for the last 30 nights is reviewed. He used 30/30 nights, 100% Average use per night 7 hours 43 minutes. Pressure used 12-13 cm. No air leak. Residual AHI only 1.3 Assessment & Plan Assessment & Plan (1) Morbid obesity: Comment: Patient educated about his gross obesity. Initially he lost 21 lb of weight, and after that it is at a standstill. Code(s): E66.01 - Morbid (severe) obesity due to excess calories Category: Medical Plan: Discussed about the weight and advised him to watch calories intake and start exercise like walking a few miles every day. (2) JAISON (obstructive sleep apnea): Comment: DIAGNOSIS OF JAIOSN . ESTABLISHED BY HOME SLEEP STUDY, He is using CPAP very regularly and benefiting, with much improved sleep quality. Does not have any significant issues with the CPAP device at this time. He is very comfortable with current AirFit-20 mask Compliance results are excellent. Code(s): G47.33 - Obstructive sleep apnea (adult) (pediatric) Category: Medical Plan: Commended for good compliance and encouraged to keep on using CPAP regularly for at least 7-8 hours per night. Coding Level of Care Code Est Pt Level 3 (39554) Diagnoses Morbid obesity E66.01 JAISON (obstructive sleep apnea) G47.33
== END 2024-01-10 15:39 | disposition home or self-care (01) ==
PROVIDERS: PCP Physician Assistant; Visit Provider Internal Medicine
DX: E66.01 Morbid (severe) obesity due to excess calories (principal); G47.33 Obstructive sleep apnea (adult) (pediatric)
CPT/HCPCS: 99213

== ENCOUNTER → 2024-01-10 15:12 | Outpatient (BNVA) | payer OTHER, SELFPAY | PROVIDERS: PCP Physician Assistant; Visit Provider Internal Medicine ==

== ENCOUNTER 2024-01-19 15:54 | Outpatient (AMB) | payer OTHER, SELFPAY ==
--- NOTE | 2024-01-19 16:00 | A.OFFPC_ITS ---
Vital Signs 01/19/24 16:01 Height 5 ft 11 in Weight 281 lb 2 oz BMI 39.2 BP 136/78 Blood Pressure Location Lt brachial Position Sitting Pulse 68 Pulse Source Pulse Oximeter Pulse Oximetry (%) 98 Oxygen Delivery Method Room Air Intake Visit Reasons: pe Intake Note: Patient is here today for a physical. 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 Accompanied by: Self / Same As Patient Allergies amoxicillin Allergy (Unknown, Verified 01/19/24 16:11) Unknown Penicillins Allergy (Unknown, Verified 01/19/24 16:11) Unknown Sulfa (Sulfonamide Antibiotics) Allergy (Unknown, Verified 01/19/24 16:11) Unknown Tobacco use date assessed: 11/23/22 Dental Screening Dental Screen Date: 01/19/24 Did you have a dental visit in the last 12 months?: Yes Did you have a dental problem in the last 6 months where you did not have access to dental care?: No Was dental information given to patient?: Patient has dentist HPI pe HPI Details Patient is a 39 year male here today for an annual physical Patient has a past medical history significant obesity, hypertension, obstructive sleep apnea and impaired glucose metabolism. .. HTN: does check blood pressure at home a reports 130 is 140 systolic.? He denies any headaches, chest discomforts or palpitations.? Blood pressure today in office acceptable .. Hyperlipidemia: Noted most recent lipid panel showing improved total cholesterol and LDL. Has been making changes in his diet. He reports he has been more physically active in has a fairly good diet. PLAN: Will continue to work on lifestyle modification to reduce his high cholesterol. .. Impaired glucose metabolism: Fasting blood sugar still remains slightly elevated, A1c appropriate. He continues to work on weight reduction and low- carbohydrate diet. .. Obesity: Has lost a few lb since last office visit, BMI remains still well above 30. Will continue to work on lifestyle modifications to reduce his weight. .. Obstructive sleep apnea: Continues with nightly use CPAP machine and is followed by classified advertising supervisor. He reports better sleep with CPAP machine. Vaccines:? UTD Tdap , UTD with COVID vaccine, Laboratory Tests 11/17/22 07/13/23 12/30/23 07:26 07:46 07:31 Fasting Glucose 112 H 120 H 115 H Hemoglobin A1c % 5.3 5.4 Cholesterol 225 253 H LDL Cholesterol, C alc 151 H 125 H TSH 1.39 Urine Microalbumin 12/30/23 07:35 Fasting Glucose Hemoglobin A1c % Cholesterol LDL Cholesterol, C alc TSH Urine Microalbumin < 5.0 PFSH Medical History NICHOLE (obstructive sleep apnea) Morbid obesity Surgical History History of placement of ear tubes Family History Father Diabetes Mother Hypertension Brother Diabetes Social History (Updated 01/19/24 @ 16:15 by Vidal Mike PA-C) Housing: House Alcohol intake: current Alcohol intake frequency: a few times a month Alcohol type: beer Patient Tobacco Use Status: Never used Tobacco Tobacco use type: Cigarette e-Cigarette/Vaping Use: Never Used Second Hand Smoke Exposure: No service: No Current occupational status: employed 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 1. Little interest or pleasure in doing things: not at all 2. Feeling down, depressed, or hopeless: not at all 3. Trouble falling or staying asleep, or sleeping too much: not at all 4. Feeling tired or having little energy: not at all 5. Poor appetite or overeating: not at all 6. Feeling bad about yourself - or that you are a failure or have let yourself or your family down: not at all 7. Trouble concentrating on things, such as reading the newspaper or watching television: not at all 8. Moving or speaking so slowly that other people could have noticed. Or the opposite - being so fidgety or restless that you have been moving around a lot more than usual: not at all 9. Thoughts that you would be better off or of hurting yourself in some way: not at all Total score: 0 Depression Screening Interpretation: Negative Depression Screening Done: Yes 21971 - PHQ-9 Billing: Yes Source: Developed by Drs. Ruy Macdonald, Mercedes Hanna, Clifton Saunders and colleagues, with an educational isabel from [employer]. Thrive Questionnaire Date Thrive assessed: 01/19/24 I am a: Patient What is your living situation today?: I have a steady place to live Within the past 12 months, did the food you bought not last and you didn't have the money to get more?: Never true Within the past 12 months, did you worry whether your food would run out before you got money to buy more?: Never true Do you have trouble paying for medicines?: No Do you have trouble getting transportation to medical appointments?: No Do you have trouble paying your heating and electricity bill?: No Do you have trouble taking care of your child, family member or friend?: No Do you have trouble with day-to-day activities such as bathing, preparing meals, shopping, managing finances, etc.?: No Are you currently unemployed and looking for a job?: No Are you interested in more education?: No Please select the resources that you would like help with: None Currently or been in a relationship where the following occur: no concerns reported THRIVE Score: 0 AUDIT C Alcohol Use Questionnaire (AUDIT-C) 1. How often do you have a drink containing alcohol?: 2-4 times a month 2. How many drinks containing alcohol do you have on a typical day when you are drinking?: 7 to 9 3. How often do you have six or more drinks on one occasion?: Never Total Score: 5 ZAC-7 AMB Questionnaire ZAC-7 Date ZAC - 7 assessed: 01/19/24 Feeling nervous, anxious, or on edge: 0 = Not at all Not being able to stop or control worryin = Not at all Worrying too much about different things: 0 = Not at all Trouble relaxin = Not at all Being so restless that it is hard to sit still: 0 = Not at all Becoming easily annoyed or irritable: 0 = Not at all Feeling afraid as if something awful might happen: 0 = Not at all Total ZAC-7 score (0-4 normal; 5-9 mild; 10-14 moderate; 15-21 severe): 0 Source: Developed by Drs. Ruy Macdonald, Mercedes Hanna, Clifton Saunders and colleagues, with an educational isabel from [employer]. ZAC-7 Assessment Billing ZAC-7 Assessment Tool: ZAC-7 Assessment 30239 Review of Systems Const Denies body aches, Denies chills, Denies excessive sweating, Denies fatigue, Denies fever(s) and Denies headache(s) Eyes Denies blurry vision ENT Denies dysphagia, Denies vertigo, Denies dizziness, Denies headache(s), Denies hearing loss and Denies tinnitus Card Denies chest pain, Denies chest pain with activity, Denies syncope, Denies irregular heart rhythm and Denies dyspnea Resp Denies chest congestion, Denies cough, Denies hemoptysis, Denies dyspnea and Denies wheezing GI Denies abdominal pain, Denies melena, Denies hematochezia, Denies coffee ground emesis, Denies dysphagia, Denies diarrhea, Denies nausea and Denies vomiting Denies difficulty urinating, Denies dysuria, Denies urinary frequency, Denies urinary hesitancy and Denies urinary urgency Musc Denies arthralgias, Denies limited range of motion, Denies muscle cramps and Denies muscle weakness Skin/Breast Denies rash and Denies skin ulcer Neuro Denies Abnormal speech present, Denies confusion, Denies vertigo, Denies dizziness, Denies syncope, Denies headache(s), Denies memory loss and Denies seizure-like activity Psych Denies anxiety, Denies confusion, Denies depression, Denies memory loss, Denies panic attacks and Denies paranoia Endo Denies excessive sweating, Denies fatigue, Denies flushing, Denies polydipsia and Denies polyuria Aller/Immun Denies wheezing Physical exam (Primary Care) Vital Signs: Last Vital Signs Pulse 68 01/19/24 16:01 BP 136/78 01/19/24 16:01 Pulse Ox 98 01/19/24 16:01 Oxygen Delivery Method Room Air 01/19/24 16:01 BMI result Body Mass Index 39.2 Tobacco/Smoking Status: Tobacco use Status Tobacco use date assessed 11/23/22 01/19/24 16:03 Patient Tobacco Use Status Never used Tobacco 01/19/24 16:15 Tobacco use type Cigarette 01/19/24 16:15 e-Cigarette/Vaping Use Never Used 01/19/24 16:15 PHQ-9: PHQ-9 Score PHQ-9: Total score 0 01/19/24 16:15 Depression Screening Interpretation: Negative Thrive Assessment: Date of Thrive Assessment Date Thrive assessed 01/19/24 01/19/24 16:05 Currently or been in a relationship where the following occur: no concerns reported Const General: cooperative, comfortable, no acute distress, alert and awake; No confusion Orientation/consciousness: oriented to person, oriented to place, patient oriented x3 and No confusion HENMT Head: Yes normocephalic Ears: external ears normal and TM's normal bilaterally Face and sinus: No sinus tenderness Mouth: Normal oral and palatal mucosa present and tongue normal Teeth and gingiva: dentition normal and gingiva normal Throat: Yes posterior oropharynx normal, Yes tonsils normal and Yes uvula midline Eyes Conjunctivae: conjunctivae normal Sclerae: sclerae normal Pupils: Equal, round and reactive pupils present EOM: EOMs intact bilaterally Direct Ophthalmoscopy: No no photophobia Neck Neck: Yes no lymphadenopathy, No tender and Yes no JVD Thyroid: Thyroid normal Carotids: no bruits Chest Chest palpation & inspection: no tenderness Resp Effort & Inspection: normal respiratory effort, no audible wheezes, not labored and no stridor Auscultation: no crackles, no rales, no rhonchi and no wheezes Cardio Jugular venous distension: no JVD Rate: regular rate, not bradycardic and not tachycardic Rhythm: regular rhythm Bruits: no carotid bruits Peripheral pulses: Peripheral pulses 2+ throughout GI Inspection: Yes normal to inspection, No abdominal wall ecchymosis and No visib le herniation Palpation (GI): Soft to palpation, nontender, no guarding, not rigid and No hepatosplenomegaly present Auscultation: normoactive bowel sounds General: Yes no CVA tenderness Back/Spine/Pelvis Back: no CVA tenderness and No back tenderness Cervical Spine: cervical ROM normal Thoracic/Lumbar Spine: thoracic and lumbar spine normal to inspection, straight leg raise negative bilaterally, No thoraco-lumbar ROM limited and No lumbar spinal tenderness Skin Lesions: no lesions Rashes: no rashes Wounds: no wounds Neuro General: oriented to person, oriented to place, patient oriented x3, CN's II-XI intact bilaterally and No confusion Cranial nerves: Yes Equal, round and reactive pupils present and Yes Normal accommodation reflex present Cognition (Neuro): normal cognition Speech: No Abnormal speech present Gait exam (Neuro): Normal gait present Motor exam (neuro): 5/5 motor strength present throughout Extrem Right upper extremity: full ROM; no cyanosis Left upper extremity: full ROM; no cyanosis Right lower extremity: no edema Left lower extremity: no edema Psych Appearance: grossly normal Mental Status: mental status grossly normal Affect: normal affect Attitude: cooperative Thought process: Normal thought process present Assessment and Plan Assessment & Plan (1) Annual physical exam: Code(s): Z00.00 - Encounter for general adult medical examination without abnormal findings (2) HTN (hypertension): Code(s): I10 - Essential (primary) hypertension Qualifiers: Hypertension type: essential hypertension Qualified Code(s): I10 - Essential (primary) hypertension Plan: Patient's blood pressure acceptable today in office. Will continue his current antihypertensive medication with goal blood pressure to be below 140/90 (3) Impaired glucose metabolism: Code(s): R73.09 - Other abnormal glucose Plan: Has a family history of diabetes Most recent fasting blood sugars slightly elevated. A1c appropriate.. Will continue to follow fasting blood sugars and A1c. Will continue on lifestyle modifications to reduce his carbohydrates and weight. (4) Borderline high cholesterol: Code(s): E78.9 - Disorder of lipoprotein metabolism, unspecified Plan: Patient continues to have borderline high total cholesterol. Again will continue working on lifestyle modifications to reduce his high cholesterol foods and weight. LDL to be below 160 (5) Obese: Code(s): E66.9 - Obesity, unspecified Qualifiers: Body mass index: BMI 40.0-44.9 Obesity classification: adult class 3 (BMI >= 40) Obesity type: due to excess calories Serious obesity comorbidity presence: with serious comorbidity Qualified Code(s): E66.01 - Morbid (severe) obesity due to excess calories; Z68.41 - Body mass index [BMI]40.0-44.9, adult Plan: Patient does understand his BMI is well over 30 and will work on being more physically active in adapting to better eating habits to reduce his weight. (6) NICHOLE (obstructive sleep apnea): Comment: DIAGNOSIS OF NICHOLE . ESTABLISHED BY HOME SLEEP STUDY, He is using CPAP very regularly and benefiting, with much improved sleep quality. Does not have any significant issues with the CPAP device at this time. He is very comfortable with current AirFit-20 mask Compliance results are excellent. Code(s): G47.33 - Obstructive sleep apnea (adult) (pediatric) Plan: Patient continues to follow pulmonology. He continues on nightly use of his CPAP machine with good effect. Patient Instructions: Goal: Blood pressure to remain below 140/90 Barriers: Adherence to healthy eating habits and physical activity Coding Level of Care Code Est Pt Prev Care 40-64y(94403) Diagnoses Annual physical exam Z00.00 Essential hypertension I10 Hypertension type: essential hypertension Impaired glucose metabolism R73.09 Borderline high cholesterol E78.9 Class 3 severe obesity due to excess calories with serious comorbidity and body mass index (BMI) of 40.0 to 44.9 in adult E66.01; Z68.41 Body mass index: BMI 40.0-44.9 Obesity classification: adult class 3 (BMI >= 40) Obesity type: due to excess calories Serious obesity comorbidity presence: with serious comorbidity NICHOLE (obstructive sleep apnea) G47.33 Additional Codes ZAC-7 Assessment Billing - ZAC-7 Assessment Tool: ZAC-7 Assessment 28523 ([id number])
[2024-01-19 16:01] VITALS: BP 136/78; PULSE 68; O2SAT 98; BMI 39.2
== END 2024-01-19 16:24 | disposition home or self-care (01) ==
PROVIDERS: PCP Physician Assistant; Visit Provider Physician Assistant
DX: Z00.00 Encounter for general adult medical examination without abnormal findings (principal); E66.01 Morbid (severe) obesity due to excess calories; Z68.41 Body mass index [BMI] 40.0-44.9, adult; I10 Essential (primary) hypertension; R73.09 Other abnormal glucose; E78.9 Disorder of lipoprotein metabolism, unspecified; G47.33 Obstructive sleep apnea (adult) (pediatric)
CPT/HCPCS: 99396

== ENCOUNTER 2024-09-17 15:42 | Outpatient (AMB) | payer OTHER, SELFPAY ==
--- NOTE | 2024-09-17 15:51 | A.OFFVIS_ITS ---
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 HE IS USING CPAP WITH FULLFACE. MASK VERY REGULARLY EVERY NIGHT. HE SLEEPS GOOD , HIS AVERAGE USE IT PER NIGHT IS BETWEEN 7-8 HOURS. HE HAS NO DISCOMFORT FROM THE MASK AND HIS CPAP DEVICE IS WORKING FINE. WEIGHT HAS GONE UP LITTLE BIT, AND HE WAS NOT AWARE OF THIS. 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 Cognitive needs: No Hearing needs: No Vision needs: No Review of Systems Const All systems reviewed & are unremarkable except as noted in HPI and below Eyes Reports no additional complaints ENT Reports no additional complaints Card Denies chest pain, Denies irregular heart rhythm and Denies leg edema Resp Reports no additional complaints GI Reports no additional complaints Reports no additional complaints Musc Reports no additional complaints Neuro Reports no additional complaints Psych Reports no additional complaints Physical Exam Vital Signs: Last Vital Signs Pulse 83 09/17/24 15:52 BP 120/80 09/17/24 15:52 Pulse Ox 95 09/17/24 15:52 Oxygen Delivery Method Room Air 09/17/24 15:52 BMI result Body Mass Index 40.6 Const General: healthy appearing (Except for gross obesity), comfortable, no acute distress, alert and awake Orientation/consciousness: patient oriented x3 HEENT Head: Yes normal to inspection General nose exam: No nasal polyps present and No nasal discharge present Face and sinus: Yes sinuses nontender Mouth: oropharynx abnormals (Narrow and crowded oropharynx, Mallampati class 4) Throat: Yes posterior oropharynx normal Eyes General: appearance normal, both eyes and all related structures Neck Neck: Yes normal visual inspection, Yes no lymphadenopathy, Yes trachea midline, Yes no JVD and Yes other (Neck circumference 17 in) Thyroid: Thyroid normal Chest Chest palpation & inspection: normal inspection of the chest, normal palpation of entire chest wall and no tenderness Resp Effort & Inspection: normal respiratory effort Auscultation: clear to auscultation bilaterally, no crackles and no wheezes Cardio Palpation: normal PMI Rate: regular rate Rhythm: regular rhythm Heart sounds: no gallops and no murmurs Peripheral pulses: Peripheral pulses 2+ throughout GI Palpation (GI): Soft to palpation, nontender, No hepatosplenomegaly present, no masses and Other GI palpation findings present (Abdomen is obese and slightly protuberant) Auscultation: normal bowel sounds Back/Spine/Pelvis Thoracic/Lumbar Spine: thoracic and lumbar spine normal to inspection Skin General skin exam: no rashes or lesions noted Neuro General: patient oriented x3 and no focal motor deficits Cranial nerves: Yes CN's II-XII intact bilaterally Extrem General: Yes normal to inspection, Yes no clubbing, cyanosis or edema and Yes no calf tenderness Psych Speech and movement: Normal speech and movement present Results Reviewed Results Reviewed: COMPLIANCE REPORT FOR THE LAST 30 NIGHTS IS REVIEWED AND HIS USAGE HAS BEEN 100% OF THE NIGHTS WITH AVERAGE USE IT PER NIGHT 7 HOURS 50 MINUTES. PRESSURE USED. 12-14 CM NO SIGNIFICANT AIR LEAK. RESIDUAL AHI ONLY 1.2 Assessment & Plan Assessment & Plan (1) Morbid obesity: Comment: HE IS MORBIDLY OBESE, BMI 40.6, BUT LOOKS HEALTHY. Code(s): E66.01 - Morbid (severe) obesity due to excess calories Category: Medical Plan: TALKED TO HIM ABOUT THE WEIGHT AND DURING THE PAST 6 MONTHS HE HAS PUT ON ABOUT 10 LB. HE IS ENCOURAGED TO CUT DOWN ON EATING AND TIED TO DO DAILY EXERCISE OR AT LEAST WALK COUPLE MILES A DAY. (2) NICHOLE (obstructive sleep apnea): Comment: DIAGNOSIS OF NICHOLE WAS ESTABLISHED BY HOME SLEEP STUDY, HE USES CPAP VERY REGULARLY EVERY NIGHT, FOR 7-8 HOURS PER NIGHT. HE GETS GOOD ON INTERRUPTED SLEEP. HAS NO ISSUES WITH THE MASK OR CPAP MACHINE. Code(s): G47.33 - Obstructive sleep apnea (adult) (pediatric) Category: Medical Plan: COMMENDED FOR GOOD COMPLIANCE. ADVISED TO KEEP ON USING THE CPAP REGULARLY. WILL RECHECK IN 6 MONTHS Coding Level of Care Code Est Pt Level 3 (21590) Diagnoses Morbid obesity E66.01 NICHOLE (obstructive sleep apnea) G47.33
[2024-09-17 15:52] VITALS: BP 120/80; PULSE 83; O2SAT 95; BMI 40.6
== END 2024-09-17 16:06 | disposition home or self-care (01) ==
PROVIDERS: PCP Physician Assistant; Visit Provider Internal Medicine
DX: E66.01 Morbid (severe) obesity due to excess calories (principal); G47.33 Obstructive sleep apnea (adult) (pediatric)
CPT/HCPCS: 99213

== ENCOUNTER → 2024-09-17 15:42 | Outpatient (BNVA) | payer OTHER, SELFPAY | PROVIDERS: PCP Physician Assistant; Visit Provider Internal Medicine ==

== ENCOUNTER 2024-10-31 07:19 | Outpatient (REF) | payer OTHER, SELFPAY ==
[2024-10-31 07:50] LABS: Alanine Aminotransferase 31 U/L (0-40); Albumin Level 4.4 g/dL (3.5-5.0); Alkaline Phosphatase 58 U/L (39-117); Anion Gap 13 (12-20); Aspartate Amino Transferase 27 U/L (5-37); Bilirubin Total 0.5 mg/dL (0.0-1.0); Blood Urea Nitrogen 14 mg/dL (9-16); Calcium 9.5 mg/dL (8.4-10.2); Carbon Dioxide 26 mmol/L (22-29); Chloride 101 mmol/L (96-108); Cholesterol 212 mg/dL (<200); Estimated Glomerular Filt Rate > 60; Glucose Fasting 118 mg/dL (60-99); HDL Cholesterol 63 mg/dL (>40); LDL Cholesterol Calculated 129 mg/dL (<100); Potassium 3.9 mmol/L (3.3-5.1); Sodium 136 mmol/L (135-145); Total Protein 7.4 g/dL (6.5-8.0); Triglycerides 103 mg/dL (<150)
[2024-10-31 07:51] LABS: Estimated Average Glucose 105 mg/dL; Hematocrit 40.3 % (42.0-52.0); Hemoglobin A1c % 5.3 % (<6.0); Mean Corpuscular HGB Conc 34.7 g/dl (31.0-36.0); Mean Corpuscular Volume 86.5 fL (80.0-98.0); Mean Platelet Volume 10.3 fL (9.4-12.4); Platelet Count 276 X10*3/uL (160-400); Red Blood Count 4.66 X10*6/uL (4.60-5.80); Red Cell Distribution Width 12.2 % (11.0-16.0)
[2024-10-31 09:04] LABS: Creatinine Urine 82.44 mg/dL; Microalbum/Creatinine Ratio Ur 8.4 ug/mg cr (<30)
== END 2024-10-31 07:20 | disposition home or self-care (01) ==
LOC: HO.LAB 07:19
PROVIDERS: PCP Physician Assistant; Visit Provider Physician Assistant
DX: R73.09 Other abnormal glucose (principal); I10 Essential (primary) hypertension; E78.9 Disorder of lipoprotein metabolism, unspecified
CPT/HCPCS: 36415; 80053; 80061; 82043; 82570; 83036; 85027

== ENCOUNTER 2024-11-06 14:19 | Outpatient (AMB) | payer OTHER, SELFPAY ==
[2024-11-06 14:45] VITALS: BP 132/84; PULSE 80; TEMP 36.3; O2SAT 98; BMI 39.7
--- NOTE | 2024-11-06 14:45 | MHC.PC.OV ---
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 Accompanied by: Self / Same As Patient Allergies amoxicillin Allergy (Unknown, Verified 11/06/24 15:13) Unknown Penicillins Allergy (Unknown, Verified 11/06/24 15:13) Unknown Sulfa (Sulfonamide Antibiotics) Allergy (Unknown, Verified 11/06/24 15:13) Unknown Medication List - Last Reconciled 11/06/24 by Vidal Mike PA-C cholecalciferol (vitamin D3) 25 mcg PO DAILY 90 days losartan-hydrochlorothiazide 50-12.5 mg 1 tab PO DAILY Tobacco use date assessed: 11/06/24 Dental Screening Dental Screen Date: 11/06/24 Did you have a dental visit in the last 12 months?: Yes Did you have a dental problem in the last 6 months where you did not have access to dental care?: No Was dental information given to patient?: Patient has dentist HPI f/u htn HPI Details Patient is a 39 year male here today for follow-up visit. Patient has a past medical history significant obesity, hypertension, obstructive sleep apnea and impaired glucose metabolism. Concern--> has signs and symptoms of for plantar fasciitis. Has been using conservative treatments and pain has gotten a bit better. He is also noted bilateral knee pain to which he attributes to his ambulation compensation. .. HTN: does check blood pressure at home a reports 130 is 140 systolic.? He denies any headaches, chest discomforts or palpitations.? Blood pressure today in office acceptable .. Hyperlipidemia: Noted most recent lipid panel showing borderline total cholesterol and LDL. Has been making changes in his diet. He reports he has been more physically active in has a fairly good diet. PLAN: Will continue to work on lifestyle modification to reduce his high cholesterol. .. Impaired glucose metabolism: Fasting blood sugar still remains slightly elevated, A1c appropriate. He continues to work on weight reduction and low-carbohydrate diet. .. Obesity: Has lost a few lb since last office visit, BMI remains still well above 30. Will continue to work on lifestyle modifications to reduce his weight. .. 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 He reports better sleep with CPAP machine. 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 1. Little interest or pleasure in doing things: not at all 2. Feeling down, depressed, or hopeless: not at all 3. Trouble falling or staying asleep, or sleeping too much: not at all 4. Feeling tired or having little energy: not at all 5. Poor appetite or overeating: not at all 6. Feeling bad about yourself - or that you are a failure or have let yourself or your family down: not at all 7. Trouble concentrating on things, such as reading the newspaper or watching television: not at all 8. Moving or speaking so slowly that other people could have noticed. Or the opposite - being so fidgety or restless that you have been moving around a lot more than usual: not at all 9. Thoughts that you would be better off or of hurting yourself in some way: not at all Total score: 0 Depression Screening Interpretation: Negative Depression Screening Done: Yes 38344 - PHQ-9 Billing: Yes Source: Developed by Drs. Ruy Macdonald, Mercedes Hanna, Clifton Saunders and colleagues, with an educational isabel from [employer]. Thrive Questionnaire Date Thrive assessed: 11/06/24 I am a: Patient What is your living situation today?: I have a steady place to live Within the past 12 months, did the food you bought not last and you didn't have the money to get more?: Never true Within the past 12 months, did you worry whether your food would run out before you got money to buy more?: Never true Do you have trouble paying for medicines?: No Do you have trouble getting transportation to medical appointments?: No Do you have trouble paying your heating and electricity bill?: No Do you have trouble taking care of your child, family member or friend?: No Do you have trouble with day-to-day activities such as bathing, preparing meals, shopping, managing finances, etc.?: No Are you currently unemployed and looking for a job?: No Are you interested in more education?: No Please select the resources that you would like help with: None Currently or been in a relationship where the following occur: No concerns reported THRIVE Score: 0 AUDIT C Alcohol Use Questionnaire (AUDIT-C) 1. How often do you have a drink containing alcohol?: 2-4 times a month 2. How many drinks containing alcohol do you have on a typical day when you are drinking?: 5 or 6 3. How often do you have six or more drinks on one occasion?: Monthly Total Score: 6 ZAC-7 AMB Questionnaire ZAC-7 Date ZAC - 7 assessed: 11/06/24 Feeling nervous, anxious, or on edge: 0 = Not at all Not being able to stop or control worryin = Not at all Worrying too much about different things: 0 = Not at all Trouble relaxin = Not at all Being so restless that it is hard to sit still: 0 = Not at all Becoming easily annoyed or irritable: 0 = Not at all Feeling afraid as if something awful might happen: 0 = Not at all Total ZAC-7 score (0-4 normal; 5-9 mild; 10-14 moderate; 15-21 severe): 0 Source: Developed by Drs. Ruy Macdonald, Mercedes Hanna, Clifton Saunders and colleagues, with an educational isabel from [employer] ZAC-7 Assessment Billing ZAC-7 Assessment Tool: ZAC-7 Assessment 70477 Review of Systems Const Denies body aches, Denies chills, Denies excessive sweating, Denies fatigue, Denies fever(s) and Denies headache(s) Eyes Denies blurry vision ENT Denies dysphagia, Denies vertigo, Denies dizziness, Denies headache(s), Denies hearing loss and Denies tinnitus Card Denies chest pain, Denies chest pain with activity, Denies syncope, Denies irregular heart rhythm and Denies dyspnea Resp Denies chest congestion, Denies cough, Denies hemoptysis, Denies dyspnea and Denies wheezing GI Denies abdominal pain, Denies melena, Denies hematochezia, Denies coffee ground emesis, Denies dysphagia, Denies diarrhea, Denies nausea and Denies vomiting Denies difficulty urinating, Denies dysuria, Denies urinary frequency, Denies urinary hesitancy and Denies urinary urgency Musc Denies arthralgias, Denies limited range of motion, Denies muscle cramps and Denies muscle weakness Skin/Breast Denies rash and Denies skin ulcer Neuro Denies Abnormal speech present, Denies confusion, Denies vertigo, Denies dizziness, Denies syncope, Denies headache(s), Denies memory loss and Denies seizure-like activity Psych Denies anxiety, Denies confusion, Denies depression, Denies memory loss, Denies panic attacks and Denies paranoia Endo Denies excessive sweating, Denies fatigue, Denies flushing, Denies polydipsia and Denies polyuria Aller/Immun Denies wheezing Physical exam (Primary Care) Vital Signs: Last Vital Signs Temp 97.3 F 11/06/24 14:45 Pulse 80 11/06/24 14:45 BP 132/84 11/06/24 14:45 Pulse Ox 98 11/06/24 14:45 Oxygen Delivery Method Room Air 11/06/24 14:45 BMI result Body Mass Index 39.7 BMI Assessment/Plan discussion: High BMI High, discussed plan: lifestyle, weight reduction, dietary and physical activity Tobacco/Smoking Status: Tobacco use Status Tobacco use date assessed 11/06/24 11/06/24 15:01 Patient Tobacco Use Status Never used Tobacco 11/06/24 14:46 Tobacco use type Cigarette 11/06/24 14:46 e-Cigarette/Vaping Use Never Used 11/06/24 14:46 PHQ-9: PHQ-9 Score PHQ-9: Total score 0 11/06/24 15:01 Depression Screening Interpretation: Negative Thrive Assessment: Date of Thrive Assessment Date Thrive assessed 11/06/24 11/06/24 15:01 Currently or been in a relationship where the following occur: No concerns reported Const General: cooperative, comfortable, no acute distress, alert and awake; No confusion Orientation/consciousness: oriented to person, oriented to place, patient oriented x3 and No confusion HENMT Head: Yes normocephalic Ears: external ears normal and TM's normal bilaterally Face and sinus: No sinus tenderness Mouth: Normal oral and palatal mucosa present and tongue normal Teeth and gingiva: dentition normal and gingiva normal Throat: Yes posterior oropharynx normal, Yes tonsils normal and Yes uvula midline Eyes Conjunctivae: conjunctivae normal Sclerae: sclerae normal Pupils: Equal, round and reactive pupils present EOM: EOMs intact bilaterally Direct Ophthalmoscopy: No no photophobia Neck Neck: Yes no lymphadenopathy, No tender and Yes no JVD Thyroid: Thyroid normal Carotids: no bruits Chest Chest palpation & inspection: no tenderness Resp Effort & Inspection: normal respiratory effort, no audible wheezes, not labored and no stridor Auscultation: no crackles, no rales, no rhonchi and no wheezes Cardio Jugular venous distension: no JVD Rate: regular rate, not bradycardic and not tachycardic Rhythm: regular rhythm Bruits: no carotid bruits Peripheral pulses: Peripheral pulses 2+ throughout GI Inspection: Yes normal to inspection, No abdominal wall ecchymosis and No visible herniation Palpation (GI): Soft to palpation, nontender, no guarding, not rigid and No hepatosplenomegaly present Auscultation: normoactive bowel sounds General: Yes no CVA tenderness Back/Spine/Pelvis Back: no CVA tenderness and No back tenderness Cervical Spine: cervical ROM normal Thoracic/Lumbar Spine: thoracic and lumbar spine normal to inspection, straight leg raise negative bilaterally, No thoraco-lumbar ROM limited and No lumbar spinal tenderness Skin Lesions: no lesions Rashes: no rashes Wounds: no wounds Neuro General: oriented to person, oriented to place, patient oriented x3, CN's II-XI intact bilaterally and No confusion Cranial nerves: Yes Equal, round and reactive pupils present and Yes Normal accommodation reflex present Cognition (Neuro): normal cognition Speech: No Abnormal speech present Gait exam (Neuro): Normal gait present Motor exam (neuro): 5/5 motor strength present throughout Extrem Right upper extremity: full ROM; no cyanosis Left upper extremity: full ROM; no cyanosis Right lower extremity: no edema Left lower extremity: no edema Psych Appearance: grossly normal Mental Status: mental status grossly normal Affect: normal affect Attitude: cooperative Thought process: Normal thought process present Coding Level of Care Code Est Pt Prev Care 40-64y(93492) Diagnoses Essential hypertension I10 Hypertension type: essential hypertension Impaired glucose metabolism R73.09 Borderline high cholesterol E78.9 Plantar fasciitis, right M72.2 NICHOLE (obstructive sleep apnea) G47.33 Class 2 obesity E66.812 Additional Codes ZAC-7 Assessment Billing - ZAC-7 Assessment Tool: ZAC-7 Assessment 08998 ([id number]) PHQ-9 - 59989 - PHQ-9 Billing: Yes ([id number]) Assessment & Plan Assessment & Plan (1) HTN (hypertension): Code(s): I10 - Essential (primary) hypertension Category: Medical Qualifiers: Hypertension type: essential hypertension Qualified Code(s): I10 - Essential (primary) hypertension Plan: Patient's blood pressure acceptable today in office. Will continue his current dose of antihypertensive medication with goal blood pressure to remain below 140/90 (2) Impaired glucose metabolism: Code(s): R73.09 - Other abnormal glucose Category: Medical Plan: Patient's most recent fasting blood sugar slightly elevated, A1c remains appropriate. Will continue to work on lifestyle and dietary modification. (3) Borderline high cholesterol: Code(s): E78.9 - Disorder of lipoprotein metabolism, unspecified Category: Medical Plan: Patient's lipid panel continues to show borderline high cholesterol. He will continue working on being more physically active and adapting to low-cholesterol diet (4) Plantar fasciitis, right: Code(s): M72.2 - Plantar fascial fibromatosis Category: Medical Plan: Patient continues to suffer with right heel plantar pain. Has been using conservative treatments with only minimal relief. He is interested in seeing a medication coordinator. Will give him prednisone taper to see if we can reduce the inflammation. He will try plantar fasciitis boot to sleep with. (5) NICHOLE (obstructive sleep apnea): Comment: DIAGNOSIS OF NICHOLE WAS ESTABLISHED BY HOME SLEEP STUDY, HE USES CPAP VERY REGULARLY EVERY NIGHT, FOR 7-8 HOURS PER NIGHT. HE GETS GOOD ON INTERRUPTED SLEEP. HAS NO ISSUES WITH THE MASK OR CPAP MACHINE. Code(s): G47.33 - Obstructive sleep apnea (adult) (pediatric) Category: Medical Plan: Patient continues to use CPAP machine on a nightly basis with good effect. We did discuss a GLP 1 that may help him with his obstructive sleep apnea and lose weight though he is considering. (6) Class 2 obesity: Code(s): E66.812 - Obesity, class 2 Category: Medical Plan: Patient does understand his BMI is over 35 and will continue working on being more physically active and adapting to better eating habits to reduce his weight. Again we did discuss perhaps starting GLP 1 to help him lose weight. Orders: Orders Complete Blood Count no Diff Today R73.09 - Other abnormal glucose Lipid Panel Today E78.9 - Disorder of lipoprotein metabolism, unspecified Hemoglobin A1c Today R73.09 - Other abnormal glucose Comprehensive [place]. Panel Fast Today R73.09 - Other abnormal glucose Referrals Podiatry Referral M72.2 - Plantar fascial fibromatosis Medications: New prednisone take 3 tabs x2 days, take 2 tablets x2days, take 1 tab x2 days 10 mg PO DIRECTED 6 days 12 tabs 0RF M72.2 - Plantar fascial fibromatosis Patient Instructions: Goal: Blood pressure to be below Barriers: Adherence to physical activity and healthy eating habits
== END 2024-11-06 15:46 | disposition home or self-care (01) ==
LOC: HO.HMCH 14:20
PROVIDERS: PCP Physician Assistant; Visit Provider Physician Assistant
DX: I10 Essential (primary) hypertension (principal); R73.09 Other abnormal glucose; E66.812 Obesity, class 2; Z68.39 Body mass index [BMI] 39.0-39.9, adult; E78.9 Disorder of lipoprotein metabolism, unspecified; M72.2 Plantar fascial fibromatosis; G47.33 Obstructive sleep apnea (adult) (pediatric)

== ENCOUNTER → 2024-11-06 14:19 | Outpatient (BNVA) | payer OTHER, SELFPAY | PROVIDERS: PCP Physician Assistant; Visit Provider Physician Assistant | DX: I10 Essential (primary) hypertension (principal); R73.09 Other abnormal glucose; E78.9 Disorder of lipoprotein metabolism, unspecified; M72.2 Plantar fascial fibromatosis; G47.33 Obstructive sleep apnea (adult) (pediatric); E66.812 Obesity, class 2; Z68.39 Body mass index [BMI] 39.0-39.9, adult | CPT/HCPCS: 96127 ==

== ENCOUNTER 2025-03-11 08:47 | Outpatient (REF) | payer OTHER, SELFPAY ==
[2025-03-11 09:25] LABS: Hematocrit 40.9 % (42.0-52.0); Hemoglobin 14.0 g/dl (14.0-18.0); Mean Corpuscular HGB Conc 34.2 g/dl (31.0-36.0); Mean Corpuscular Hemoglobin 30.2 pg (27.0-33.0); Mean Corpuscular Volume 88.3 fL (80.0-98.0); NRBC Abs Auto 0.000 X10*3/uL (0.0-0.012); NRBC Pct Auto 0.0 /100WBC (0.0-0.2); Platelet Count 263 X10*3/uL (160-400); Red Blood Count 4.63 X10*6/uL (4.60-5.80); White Blood Count 5.7 X10*3/uL (4.8-10.8)
[2025-03-11 09:33] LABS: Hemoglobin A1C 131.0445 umol/L; Total Hemoglobin (HGBA1C) 3733.3493 umol/L
[2025-03-11 09:49] LABS: Alanine Aminotransferase 34 U/L (0-40); Albumin Level 4.7 g/dL (3.5-5.0); Alkaline Phosphatase 63 U/L (39-117); Anion Gap 11 (12-20); Aspartate Amino Transferase 32 U/L (5-37); Blood Urea Nitrogen 12 mg/dL (9-16); Calcium 9.9 mg/dL (8.4-10.2); Carbon Dioxide 26 mmol/L (22-29); Chloride 104 mmol/L (96-108); Cholesterol 223 mg/dL (<200); Estimated Glomerular Filt Rate > 60; HDL Cholesterol 73 mg/dL (>40); Potassium 3.9 mmol/L (3.3-5.1); Sodium 137 mmol/L (135-145); Total Protein 7.5 g/dL (6.5-8.0); Triglycerides 128 mg/dL (<150)
== END 2025-03-11 08:48 | disposition home or self-care (01) ==
LOC: HO.LAB 08:47
PROVIDERS: PCP Physician Assistant; Visit Provider Physician Assistant
DX: E78.9 Disorder of lipoprotein metabolism, unspecified (principal); R73.09 Other abnormal glucose
CPT/HCPCS: 36415; 80053; 80061; 83036; 85027

== ENCOUNTER 2025-03-18 09:51 | Outpatient (AMB) | payer OTHER, SELFPAY ==
[2025-03-18 10:15] VITALS: BP 120/80; PULSE 73; O2SAT 97; BMI 39.4
--- NOTE | 2025-03-18 10:15 | MHC.OFFVIS ---
Vital Signs 03/18/25 10:15 Height 5 ft 11 in Weight 282 lb 3.067 oz BMI 39.4 BP 120/80 Blood Pressure Location Lt brachial Position Sitting Pulse 73 Pulse Source Pulse Oximeter Pulse Oximetry (%) 97 Oxygen Delivery Method Room Air Intake Visit Reasons: Obstructive sleep apnea Intake Note: pt is here for follow up and states he is doing well with cpap, and feels good. 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 COMES AFTER 6 MONTHS FOR FOLLOW-UP FOR HIS USE OF CPAP. HE IS USING CPAP EVERY NIGHT REGULARLY AND SLEEPS GOOD. HE HAS NO ISSUES WITH THE USE OF CPAP. WEIGHT SAHU THERE HAS BEEN NO CHANGE. HE HAS NO DAYTIME SLEEPINESS. 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 Cognitive needs: No Hearing needs: No Vision needs: No Review of Systems Const All systems reviewed & are unremarkable except as noted in HPI and below Eyes Reports no additional complaints ENT Reports no additional complaints Card Denies chest pain, Denies irregular heart rhythm and Denies leg edema Resp Reports no additional complaints GI Reports no additional complaints Reports no additional complaints Musc Reports no additional complaints Neuro Reports no additional complaints Psych Reports no additional complaints Physical Exam Vital Signs: Last Vital Signs Pulse 73 03/18/25 10:15 BP 120/80 03/18/25 10:15 Pulse Ox 97 03/18/25 10:15 Oxygen Delivery Method Room Air 03/18/25 10:15 BMI result Body Mass Index 39.4 Const General: healthy appearing (Except for gross obesity), comfortable, no acute distress, alert and awake Orientation/consciousness: patient oriented x3 HEENT Head: Yes normal to inspection General nose exam: No nasal polyps present and No nasal discharge present Face and sinus: Yes sinuses nontender Mouth: oropharynx abnormals (Narrow and crowded oropharynx, Mallampati class 4) Throat: Yes posterior oropharynx normal Eyes General: appearance normal, both eyes and all related structures Neck Neck: Yes normal visual inspection, Yes no lymphadenopathy, Yes trachea midline, Yes no JVD and Yes other (Neck circumference 17 in) Thyroid: Thyroid normal Chest Chest palpation & inspection: normal inspection of the chest, normal palpation of entire chest wall and no tenderness Resp Effort & Inspection: normal respiratory effort Auscultation: clear to auscultation bilaterally, no crackles and no wheezes Cardio Palpation: normal PMI Rate: regular rate Rhythm: regular rhythm Heart sounds: no gallops and no murmurs Peripheral pulses: Peripheral pulses 2+ throughout GI Palpation (GI): Soft to palpation, nontender, No hepatosplenomegaly present, no masses and Other GI palpation findings present (Abdomen is obese and slightly protuberant) Auscultation: normal bowel sounds Back/Spine/Pelvis Thoracic/Lumbar Spine: thoracic and lumbar spine normal to inspection Skin General skin exam: no rashes or lesions noted Neuro General: patient oriented x3 and no focal motor deficits Cranial nerves: Yes CN's II-XII intact bilaterally Extrem General: Yes normal to inspection, Yes no clubbing, cyanosis or edema and Yes no calf tenderness Psych Speech and movement: Normal speech and movement present Results Reviewed Results Reviewed: COMPLIANCE REPORT FOR THE LAST 30 NIGHTS REVIEWED AND HE HAS USED. 100% OF THE NIGHTS AVERAGE USES PER. NIGHT 8 HOURS 3 MINUTES THERE IS. NO SIGNIFICANT AIR LEAK AND RESIDUAL AHI ONLY 1.4 Assessment & Plan Assessment & Plan (1) Morbid obesity: Comment: HE IS MORBIDLY OBESE, BMI 39.4, BUT LOOKS HEALTHY. Code(s): E66.01 - Morbid (severe) obesity due to excess calories Category: Medical Plan: ENCOURAGED TO LOSE MORE WEIGHT , MY WATCHING DIET AND ALSO BY WALKING OR EXERCISING DAILY. (2) NICHOLE (obstructive sleep apnea): Comment: DIAGNOSIS OF NICHOLE WAS ESTABLISHED BY HOME SLEEP STUDY, HE USES CPAP VERY REGULARLY EVERY NIGHT, FOR 7-8 HOURS PER NIGHT. HE GETS GOOD DLEEP , HE HAS NO ISSUES WITH THE MASK ( FF ) OR CPAP MACHINE. Code(s): G47.33 - Obstructive sleep apnea (adult) (pediatric) Category: Medical Plan: COMMENDED FOR GOOD COMPLIANCE AND ADVISED TO KEEP ON USING THE CPAP REGULARLY Coding Level of Care Code Est Pt Level 3 (28589) Diagnoses Morbid obesity E66.01 NICHOLE (obstructive sleep apnea) G47.33
== END 2025-03-18 10:43 | disposition home or self-care (01) ==
LOC: HO.HPS 09:51
PROVIDERS: PCP Physician Assistant; Visit Provider Internal Medicine
DX: E66.01 Morbid (severe) obesity due to excess calories (principal); G47.33 Obstructive sleep apnea (adult) (pediatric)
CPT/HCPCS: 99213

== ENCOUNTER 2025-03-19 15:04 | Outpatient (REF) | payer OTHER, SELFPAY ==
--- NOTE | ~2025-03-19 | XR_ITS ---
EXAMINATION: XR KNEE, RIGHT CLINICAL INFORMATION: M25.561 - Pain in right knee COMPARISON: None available. TECHNIQUE: Four views of the right knee. FINDINGS: No fracture, dislocation, or suspicious bone lesion. Normal bone mineralization. Normal alignment. Mild medial compartment and patellofemoral compartment joint space narrowing. Mild spurring of the tibial spines. No significant joint effusion. Soft tissues appear normal. XR/XR knee RT 2V IMPRESSION: 1. No acute findings A right knee. 2. Mild medial and patellofemoral compartment osteoarthrosis. Electronically signed by: Ozzie Trujillo MD 03/19/2025 04:02 PM EDT
== END 2025-03-19 15:05 | disposition home or self-care (01) ==
LOC: HO.XRAY 15:04
PROVIDERS: PCP Physician Assistant; Visit Provider Physician Assistant
DX: Z00.00 Encounter for general adult medical examination without abnormal findings (principal); I10 Essential (primary) hypertension; R73.09 Other abnormal glucose; E78.9 Disorder of lipoprotein metabolism, unspecified; G47.33 Obstructive sleep apnea (adult) (pediatric); E66.812 Obesity, class 2; Z68.39 Body mass index [BMI] 39.0-39.9, adult; M25.561 Pain in right knee; G89.29 Other chronic pain; Z13.31 Encounter for screening for depression; Z13.39 Encounter for screening examination for other mental health and behavioral disorders; Z99.89 Dependence on other enabling machines and devices
CPT/HCPCS: 73560; 96127

== ENCOUNTER 2025-03-19 15:04 | Outpatient (AMB) | payer OTHER, SELFPAY ==
--- NOTE | 2025-03-19 15:08 | A.OFFPC_ITS ---
Vital Signs 03/19/25 15:09 Height 5 ft 11 in Weight 280 lb 2 oz BMI 39.1 BP 140/60 H Blood Pressure Location Lt brachial Position Sitting Pulse 72 Pulse Source Pulse Oximeter Temp 97.3 F Temp Source Temporal Artery Scan Pulse Oximetry (%) 97 Oxygen Delivery Method Room Air Intake Visit Reasons: ANNUAL Intake Note: Patient is here today for a physical. 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 Reading Teacher: Not Required per policy Accompanied by: Self / Same As Patient Allergies amoxicillin Allergy (Unknown, Verified 03/19/25 15:17) Unknown Penicillins Allergy (Unknown, Verified 03/19/25 15:17) Unknown Sulfa (Sulfonamide Antibiotics) Allergy (Unknown, Verified 03/19/25 15:17) Unknown Medication List - Last Reconciled 03/19/25 by Vidal Mike PA-C cholecalciferol (vitamin D3) 25 mcg PO DAILY 90 days losartan-hydrochlorothiazide 50-12.5 mg 1 tab PO DAILY Tobacco use date assessed: 03/19/25 Dental Screening Dental Screen Date: 11/06/24 HPI ANNUAL HPI Details Patient is a 40 year male here today for routine annual physical Patient has a past medical history significant obesity, hypertension, obstructive sleep apnea and impaired glucose metabolism. Concern--> . The patient has a recurring issue with lower back pain, which he experiences almost every summer, and it has recently started to improve. He has been using meloxicam, an anti-inflammatory medication, which has provided relief for both his back and knee pain. .. HTN: He denies any headaches, chest discomforts or palpitations.? Blood pressure today slightly elevated, he reports that home blood pressures are 130 systolic .. Hyperlipidemia: Noted most recent lipid panel showing borderline total cholesterol and LDL. Has been making changes in his diet. He reports he has been more physically active in has a fairly good diet. PLAN: Will continue to work on lifestyle modification to reduce his high cholesterol. .. Impaired glucose metabolism: Fasting blood sugar still remains slightly elevated, A1c appropriate. He continues to work on weight reduction and low- carbohydrate diet. .. Obesity: Has lost a few lb since last office visit, BMI remains still well above 30. Will continue to work on lifestyle modifications to reduce his weight. .. Obstructive sleep apnea: Continues with nightly use CPAP machine and is followed by director business integration. He reports better sleep with CPAP machine. Vaccines: Up-to-date with tetanus and COVID vaccines, considering annual flu shot, Consider PCV -20 Laboratory Tests 12/30/23 10/31/24 10/31/24 07:31 07:24 07:27 RBC Fasting Glucose 115 H 118 H Hemoglobin A1c % 5.3 Cholesterol 213 H 212 H LDL Cholesterol, C alc 129 H Urine Microalbumin 7.0 03/11/25 08:59 RBC 4.63 Fasting Glucose 116 H Hemoglobin A1c % 5.4 Cholesterol 223 H LDL Cholesterol, C alc 125 H Urine Microalbumin [facility] Medical History NICHOLE (obstructive sleep apnea) Morbid obesity Surgical History History of placement of ear tubes Family History Father Diabetes Mother Hypertension Brother Diabetes Social History (Updated 03/19/25 @ 15:20 by Vidal Mike PA-C) Housing: House Alcohol intake: current Alcohol intake frequency: a few times a month Alcohol type: beer Patient Tobacco Use Status: Never used Tobacco Tobacco use type: Cigarette e-Cigarette/Vaping Use: Never Used Second Hand Smoke Exposure: No service: No Current occupational status: employed 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 1. Little interest or pleasure in doing things: not at all 2. Feeling down, depressed, or hopeless: not at all 3. Trouble falling or staying asleep, or sleeping too much: not at all 4. Feeling tired or having little energy: not at all 5. Poor appetite or overeating: not at all 6. Feeling bad about yourself - or that you are a failure or have let yourself or your family down: not at all 7. Trouble concentrating on things, such as reading the newspaper or watching television: not at all 8. Moving or speaking so slowly that other people could have noticed. Or the opposite - being so fidgety or restless that you have been moving around a lot more than usual: not at all 9. Thoughts that you would be better off or of hurting yourself in some way: not at all Total score: 0 Depression Screening Interpretation: Negative Depression Screening Done: Yes [id number] - PHQ-9 Billing: Yes Source: Developed by Drs. Ruy Macdonald, Mercedes Hanna, Clifton Saunders and colleagues, with an educational isabel from [employer]. Thrive Questionnaire Date Thrive assessed: 03/14/25 I am a: Patient What is your living situation today?: I have a steady place to live Within the past 12 months, did the food you bought not last and you didn't have the money to get more?: Never true Within the past 12 months, did you worry whether your food would run out before you got money to buy more?: Never true Do you have trouble paying for medicines?: No Do you have trouble getting transportation to medical appointments?: No Do you have trouble paying your heating and electricity bill?: No Do you have trouble taking care of your child, family member or friend?: No Do you have trouble with day-to-day activities such as bathing, preparing meals, shopping, managing finances, etc.?: No Are you currently unemployed and looking for a job?: Yes Are you interested in more education?: No Please select the resources that you would like help with: None Currently or been in a relationship where the following occur: No concerns reported THRIVE Score: 0 AUDIT C Alcohol Use Questionnaire (AUDIT-C) 1. How often do you have a drink containing alcohol?: 2-3 times a week Total Score: 3 ZAC-7 AMB Questionnaire ZAC-7 Date ZAC - 7 assessed: 03/19/25 Feeling nervous, anxious, or on edge: 0 = Not at all Not being able to stop or control worryin = Not at all Worrying too much about different things: 0 = Not at all Trouble relaxin = Not at all Being so restless that it is hard to sit still: 0 = Not at all Becoming easily annoyed or irritable: 0 = Not at all Feeling afraid as if something awful might happen: 0 = Not at all Total ZAC-7 score (0-4 normal; 5-9 mild; 10-14 moderate; 15-21 severe): 0 Source: Developed by Mercedes Sandhu. Jacques, Clifton Saunders and colleagues, with an educational isabel from [employer]. ZAC-7 Assessment Billing ZAC-7 Assessment Tool: ZAC-7 Assessment 93397 Review of Systems Const Denies body aches, Denies chills, Denies excessive sweating, Denies fatigue, Denies fever(s) and Denies headache(s) Eyes Denies blurry vision ENT Denies dysphagia, Denies vertigo, Denies dizziness, Denies headache(s), Denies hearing loss and Denies tinnitus Card Denies chest pain, Denies chest pain with activity, Denies syncope, Denies irregular heart rhythm and Denies dyspnea Resp Denies chest congestion, Denies cough, Denies hemoptysis, Denies dyspnea and Denies wheezing GI Denies abdominal pain, Denies melena, Denies hematochezia, Denies coffee ground emesis, Denies dysphagia, Denies diarrhea, Denies nausea and Denies vomiting Denies difficulty urinating, Denies dysuria, Denies urinary frequency, Denies urinary hesitancy and Denies urinary urgency Musc Denies arthralgias, Denies limited range of motion, Denies muscle cramps and Denies muscle weakness Skin/Breast Denies rash and Denies skin ulcer Neuro Denies Abnormal speech present, Denies confusion, Denies vertigo, Denies dizziness, Denies syncope, Denies headache(s), Denies memory loss and Denies seizure-like activity Psych Denies anxiety, Denies confusion, Denies depression, Denies memory loss, Denies panic attacks and Denies paranoia Endo Denies excessive sweating, Denies fatigue, Denies flushing, Denies polydipsia and Denies polyuria Aller/Immun Denies wheezing Physical exam (Primary Care) Vital Signs: Last Vital Signs Temp 97.3 F 03/19/25 15:09 Pulse 72 03/19/25 15:09 BP 140/60 H 03/19/25 15:09 Pulse Ox 97 03/19/25 15:09 Oxygen Delivery Method Room Air 03/19/25 15:09 BMI result Body Mass Index 39.1 BMI Assessment/Plan discussion: High BMI High, discussed plan: lifestyle, weight reduction, dietary and physical activity Tobacco/Smoking Status: Tobacco use Status Tobacco use date assessed 03/19/25 03/19/25 15:14 Patient Tobacco Use Status Never used Tobacco 03/19/25 15:14 Tobacco use type Cigarette 03/19/25 15:14 e-Cigarette/Vaping Use Never Used 03/19/25 15:14 PHQ-9: PHQ-9 Score PHQ-9: Total score 0 03/19/25 15:14 Depression Screening Interpretation: Negative Thrive Assessment: Date of Thrive Assessment Date Thrive assessed 03/14/25 03/19/25 15:14 Currently or been in a relationship where the following occur: No concerns reported Const General: cooperative, comfortable, no acute distress, alert and awake; No confusion Orientation/consciousness: oriented to person, oriented to place, patient oriented x3 and No confusion HENMT Head: Yes normocephalic Ears: external ears normal and TM's normal bilaterally Face and sinus: No sinus tenderness Mouth: Normal oral and palatal mucosa present and tongue normal Teeth and gingiva: dentition normal and gingiva normal Throat: Yes posterior oropharynx normal, Yes tonsils normal and Yes uvula midline Eyes Conjunctivae: conjunctivae normal Sclerae: sclerae normal Pupils: Equal, round and reactive pupils present EOM: EOMs intact bilaterally Direct Ophthalmoscopy: No no photophobia Neck Neck: Yes no lymphadenopathy, No tender and Yes no JVD Thyroid: Thyroid normal Carotids: no bruits Chest Chest palpation & inspection: no tenderness Resp Effort & Inspection: normal respiratory effort, no audible wheezes, not labored and no stridor Auscultation: no crackles, no rales, no rhonchi and no wheezes Cardio Jugular venous distension: no JVD Rate: regular rate, not bradycardic and not tachycardic Rhythm: regular rhythm Bruits: no carotid bruits Peripheral pulses: Peripheral pulses 2+ throughout GI Inspection: Yes normal to inspection, No abdominal wall ecchymosis and No visible herniation Palpation (GI): Soft to palpation, nontender, no guarding, not rigid and No hepatosplenomegaly present Auscultation: normoactive bowel sounds General: Yes no CVA tenderness Back/Spine/Pelvis Back: no CVA tenderness and No back tenderness Cervical Spine: cervical ROM normal Thoracic/Lumbar Spine: thoracic and lumbar spine normal to inspection, straight leg raise negative bilaterally, No thoraco-lumbar ROM limited and No lumbar spinal tenderness Skin Lesions: no lesions Rashes: no rashes Wounds: no wounds Neuro General: oriented to person, oriented to place, patient oriented x3, CN's II-XI intact bilaterally and No confusion Cranial nerves: Yes Equal, round and reactive pupils present and Yes Normal accommodation reflex present Cognition (Neuro): normal cognition Speech: No Abnormal speech present Gait exam (Neuro): Normal gait present Motor exam (neuro): 5/5 motor strength present throughout Extrem Right upper extremity: full ROM; no cyanosis Left upper extremity: full ROM; no cyanosis Right lower extremity: no edema Left lower extremity: no edema Psych Appearance: grossly normal Mental Status: mental status grossly normal Affect: normal affect Attitude: cooperative Thought process: Normal thought process present Coding Level of Care Code Est Pt Prev Care 40-64y([id number]) Diagnoses Annual physical exam Z00.00 Essential hypertension I10 Hypertension type: essential hypertension Impaired glucose metabolism R73.09 Borderline high cholesterol E78.9 NICHOLE (obstructive sleep apnea) G47.33 Class 2 obesity E66.812 Chronic pain of right knee M25.561; G89.29 Chronicity: chronic Additional Codes PHQ-9 - 94977 - PHQ-9 Billing: Yes ([id number]) ZAC-7 Assessment Billing - ZAC-7 Assessment Tool: ZAC-7 Assessment [id number] ([id number]) Assessment & Plan Assessment & Plan (1) Annual physical exam: Code(s): Z00.00 - Encounter for general adult medical examination without abnormal findings Category: Medical Plan: As per HPI (2) HTN (hypertension): Code(s): I10 - Essential (primary) hypertension Category: Medical Qualifiers: Hypertension type: essential hypertension Qualified Code(s): I10 - Essential (primary) hypertension Plan: Patient's blood pressure slightly elevated today in office, he is consistent what his antihypertensive medication, he monitors his blood pressure at home and reports 130 systolic quite regularly. Will continue his current dose of antihypertensive medication with goal blood pressure to remain below 140/90 (3) Impaired glucose metabolism: Code(s): R73.09 - Other abnormal glucose Category: Medical Plan: Patient's most recent fasting blood sugar slightly elevated, A1c remains appropriate. Will continue to work on lifestyle and dietary modification. (4) Borderline high cholesterol: Code(s): E78.9 - Disorder of lipoprotein metabolism, unspecified Category: Medical Plan: Patient's lipid panel continues to show borderline high cholesterol. His calculated CV risk is low. He will continue working on being more physically active and adapting to low- cholesterol diet (5) NICHOLE (obstructive sleep apnea): Comment: DIAGNOSIS OF NICHOLE WAS ESTABLISHED BY HOME SLEEP STUDY, HE USES CPAP VERY REGULARLY EVERY NIGHT, FOR 7-8 HOURS PER NIGHT. HE GETS GOOD DLEEP , HE HAS NO ISSUES WITH THE MASK ( FF ) OR CPAP MACHINE. Code(s): G47.33 - Obstructive sleep apnea (adult) (pediatric) Category: Medical Plan: Patient continues to use CPAP machine on a nightly basis with good effect. We did discuss a GLP 1 that may help him with his obstructive sleep apnea and lose weight though he is considering. (6) Class 2 obesity: Code(s): E66.812 - Obesity, class 2 Category: Medical Plan: Patient does understand his BMI is over 35 and will continue working on being m ore physically active and adapting to better eating habits to reduce his weight. Again we did discuss perhaps starting GLP 1 to help him lose weight. (7) Right knee pain: Code(s): M25.561 - Pain in right knee Category: Medical Qualifiers: Chronicity: chronic Qualified Code(s): M25.561 - Pain in right knee; G89.29 - Other chronic pain Plan: The patient experiences knee pain, particularly when bending or squatting, and has noted a throbbing sensation after physical activity or prolonged sitting. An x-ray of the right knee has been ordered to assess for arthritis or other structural issues. The patient has been advised to use meloxicam as needed for pain management and to consider physical therapy for strengthening the knee. Orders: Orders Complete Blood Count no Diff Today E78.9 - Disorder of lipoprotein metabolism, unspecified Lipid Panel Today E78.9 - Disorder of lipoprotein metabolism, unspecified Comprehensive Alfred. Panel Fast Today E78.9 - Disorder of lipoprotein metabolism, unspecified Hemoglobin A1c Today R73.09 - Other abnormal glucose XR knee RT 2V Today G89.29 - Other chronic pain, M25.561 - Pain in right knee Medications: New meloxicam 15 mg PO DAILY PRN 15 tabs 0RF pain (scale score 7-10) 15 days G89.29 - Other chronic pain, M25.561 - Pain in right knee Patient Instructions: Goal: Blood pressure to remain below 140/90 Barriers: Adherence to physical activity and healthy eating habits
[2025-03-19 15:09] VITALS: BP 140/60; PULSE 72; TEMP 36.3; O2SAT 97; BMI 39.1
== END 2025-03-19 15:35 | disposition home or self-care (01) ==
LOC: HO.HMCH 15:06
PROVIDERS: PCP Physician Assistant; Visit Provider Physician Assistant
DX: Z00.00 Encounter for general adult medical examination without abnormal findings (principal); I10 Essential (primary) hypertension; R73.09 Other abnormal glucose; E78.9 Disorder of lipoprotein metabolism, unspecified; G47.33 Obstructive sleep apnea (adult) (pediatric); E66.812 Obesity, class 2; M25.561 Pain in right knee; G89.29 Other chronic pain

== ENCOUNTER → 2025-03-19 15:43 | Outpatient (BNV) | payer OTHER, SELFPAY | PROVIDERS: PCP Physician Assistant; Visit Provider Radiology Diagnostic Radiology | DX: M25.561 Pain in right knee (principal) | CPT/HCPCS: 73560 ==